=== PATIENT | female | born 1930 | race Caucasian/White ===

== ENCOUNTER 2017-03-01 13:30 | Inpatient (IN) | payer MEDICARE, OTHER ==
[2017-03-01] MEDS ORDERED: Haloperidol Lactate 5 mg/mL 1mL Vial IM STA (13:41)
[2017-03-01] MEDS ORDERED: Haloperidol Lactate 5 mg/mL 1mL Vial ONE (13:45)
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
[2017-03-01 15:51] LABS: % BASOPHILS 0.3 % (0.0-2.0); % EOSINOPHILS 1.1 % (0.0-5.0); % LYMPHOCYTES 24.8 % (20.0-50.0); % NEUTROPHILS 67.8 % (40.0-80.0); HEMATOCRIT 34.9 % (35.0-45.0); HEMOGLOBIN 11.6 gm/dL (11.7-16.1); MEAN CELL VOLUME 85.8 fl (81-100); MEAN CORPUSCULAR HEMOGLOBIN 28.6 pg (27.0-31.0); MEAN CORPUSCULAR HGB CONC 33.4 pg (28.0-36.0); MEAN PLATELET VOLUME 9.9 fl; NEUTROPHILE ABSOLUTE 7.5 Th/cmm (1.8-8.0); PLATELET COUNT 337 Th/cmm (150-400); RED BLOOD COUNT 4.07 Mil/cmm (3.80-5.20); RED CELL DISTRIBUTION WIDTH 13.8 % (11.5-20.0); WHITE BLOOD COUNT 11.1 Th/cmm (4.8-10.8)
[2017-03-01 15:58] LABS: ACETAMINOPHEN < 10.0 ug/mL (10.0-30.0); ALB/GLOB RATIO 1.2 (1.0-1.8); ALKALINE PHOSPHATASE 113 U/L (34-104); ANION GAP 11.1 (7.0-16.0); BILIRUBIN,TOTAL 0.2 mg/dL (0.3-1.0); BUN - UREA NITROGEN 23 mg/dL (7-25); BUN/CREATININE RATIO 25.6; CALCIUM SERUM 9.7 mg/dL (8.6-10.3); CARBON DIOXIDE 25.3 mEq/L (21.0-31.0); CHLORIDE 104 mEq/L (98-107); CHOLESTEROL 191 mg/dL (<200); CREATININE - SERUM 0.9 mg/dL (0.6-1.2); GLUCOSE 64 mg/dL (70-105); POTASSIUM SERUM 3.4 mEq/L (3.5-5.1); SGOT 17 U/L (13-39); SGPT/ALT 11 U/L (7-52); SODIUM SERUM 137 mEq/L (136-145); TRIGLYCERIDES 163 mg/dL (<150)
[2017-03-01 16:53] LABS: URINE BILIRUBIN NEGATIVE (NEGATIVE); URINE COLOR YELLOW; URINE KETONE NEGATIVE (NEGATIVE); URINE PH 7.5; URINE PROTEIN NEGATIVE (NEGATIVE)
[2017-03-01 16:56] LABS: URINE GLUCOSE (UA) 250 mg/dL (NEGATIVE)
[2017-03-01 16:57] LABS: URINE BLOOD NEGATIVE (NEGATIVE)
[2017-03-01 16:58] LABS: URINE BACTERIA NONE SEEN /hpf (NONE SEEN); URINE EPITHELIAL CELLS NONE SEEN /lpf (FEW); URINE RBC NONE SEEN /hpf (0-5); URINE WBC NONE SEEN /hpf (0-5)
[2017-03-01 18:05] VITALS: BP 123/62
[2017-03-01 18:11] LABS: AMPHETAMINE URINE NEGATIVE (NEGATIVE); BARBITURATES URINE NEGATIVE (NEGATIVE); METHADONE URINE NEGATIVE (NEGATIVE)
[2017-03-01] MEDS ORDERED: Maalox 30 mL Cup PO PRN (19:58)
[2017-03-01] MEDS ORDERED: Magnesium Hydroxide (MOM) 30 mL UDC PO PRN (19:58)
[2017-03-01] MEDS ORDERED: Hydrocodone/APAP 10 mg/325 mg Tab PO PRN (20:24)
[2017-03-01] MEDS: Escitalopram Oxalate 5 mg Tab PO SCH (21:29)
[2017-03-01] MEDS: INSULIN ASPART SLIDING SCALE 100 UNITS/ML UNIT SUBQ SCH (21:30)
--- NOTE | 2017-03-02 04:53 | Admit Criteria Form ---
Admit Criteria Forms - Admit Criteria Diagnosis: PSYCHIATRIC DISORDERS (Place 'X' for any and all applicable criteria): Ongoing inpatient care may be needed for 1 or more of the following(1)(2)(3)(4)( 6)(7)(8): [ ]I. Danger to self or others not manageable at lower level of care. [ ]II. Grave disability (eg, inability to perform self care necessary at lower level of care) [X]III. Agitation or inappropriate behavior interfering with care for primary condition (eg, attempting to discontinue lines or drains prematurely, unable to cooperate with respiratory care) [ ]IV. Severe disability or disorder indicated by ALL of the following: [ ]a) Severe behavioral health disorder-related symptoms or condition indicated by 1 or more of the following: [ ]i) Severe problem with cognition, memory, judgment, or impulse control [ ]ii) Severe clinical manifestations (eg, hallucinations, delusions, other acute psychotic symptoms, macy, extreme agitation or anxiety) [ ]b) Patient management at lower level of care is not feasible until acute intervention or modification is initiated. Extended stay beyond goal length of stay for the primary condition may be needed until ALLof the following are present(1)(2)(3)(4)(722)(23): [ ]a) Danger to self or others is absent or manageable at lower level of care [ ]b) Behavior crisis management, including physical or chemical restraints, is required and is not available at a lower level of care. [ ]c) Behavioral symptoms (e.g., agitation, somnolence, inappropriate behavior) are present, and are not manageable at a lower level of care. [ ]d) Patient cannot understand follow-up treatment and crisis plan. [ ]e) Provider and supports are sufficiently available at lower level of care. [ ]f) Patient can participate (e.g., verify absence of plan for harm) and is in needed of monitoring. The original [facility] content created by [facility] [employer] has been revised. The portions of the content which have been revised are identified through the use of italic text or in bold, and [facility] [employer] has neither reviewed nor approved the modified material. All other unmodified content is copyright [facility]. Please see references footnoted in the original [facility] edition 2017
[2017-03-02] MEDS: INSULIN ASPART SLIDING SCALE 100 UNITS/ML UNIT SUBQ SCH ×4 (06:56→21:13)
[2017-03-02] MEDS: Multivitamin Tab PO SCH (09:04)
[2017-03-02] MEDS: Insulin Detemir 100 units/mL 10mL Vial SUBQ SCH ×2 (09:05→16:40)
[2017-03-02] MEDS: Escitalopram Oxalate 5 mg Tab PO SCH (21:05)
[2017-03-03] MEDS: INSULIN ASPART SLIDING SCALE 100 UNITS/ML UNIT SUBQ SCH ×4 (06:42→20:54)
[2017-03-03] MEDS: Insulin Detemir 100 units/mL 10mL Vial SUBQ SCH ×2 (08:16→16:26)
[2017-03-03] MEDS: Multivitamin Tab PO SCH (08:17)
[2017-03-03 14:11] LABS: HEP B CORE IGM Negative (Negative); HEP C ANTIBODY <0.1 s/co ratio (0.0-0.9)
[2017-03-03] MEDS: Escitalopram Oxalate 5 mg Tab PO SCH (20:54)
[2017-03-04] MEDS: INSULIN ASPART SLIDING SCALE 100 UNITS/ML UNIT SUBQ SCH ×4 (06:32→21:03)
[2017-03-04] MEDS: Insulin Detemir 100 units/mL 10mL Vial SUBQ SCH ×2 (09:30→16:12)
[2017-03-04] MEDS: Multivitamin Tab PO SCH (09:30)
[2017-03-04] MEDS: Escitalopram Oxalate 5 mg Tab PO SCH (21:03)
[2017-03-05] MEDS: INSULIN ASPART SLIDING SCALE 100 UNITS/ML UNIT SUBQ SCH ×4 (06:32→21:23)
[2017-03-05] MEDS: Insulin Detemir 100 units/mL 10mL Vial SUBQ SCH ×2 (09:00→17:06)
[2017-03-05] MEDS: Multivitamin Tab PO SCH (09:46)
[2017-03-05] MEDS: Escitalopram Oxalate 5 mg Tab PO SCH (20:57)
[2017-03-06] MEDS: INSULIN ASPART SLIDING SCALE 100 UNITS/ML UNIT SUBQ SCH ×4 (06:31→21:15)
--- NOTE | 2017-03-06 09:24 | History and Physical ---
History of Present Illness - HPI Chief Complaint: Mental health evaluation HPI: 87 yrs old F admitted for evaluation of her mental health by Dr Spencer. Dr Spencer requested medical evaluation for this patient. Patient has underlying history of DM II HTN for which she is on chronic meds. Patient denied any complaints during my evaluation. 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 Pertinent Hx Psych: Report: Psychosis Endocrine: Report: Diabetes Family Medical History - Family Member Mother History Unknown: Yes Social History Smoke: No Alcohol: None Drugs: None Lives: [facility] - Medications Home Medications: Home Medication Medication Instructions Recorded Type Acetaminophen 325 mg PO Q4HR PRN 03/01/17 History Acetaminophen [Tylenol] 650 mg PO Q4HR PRN 03/01/17 History Docusate Sodium [Stool Softener] 250 mg PO DAILY 03/01/17 History Donepezil Hcl [Aricept] 10 mg PO HS 03/01/17 History Escitalopram Oxalate [Lexapro] 5 mg PO HS 03/01/17 History Hydralazine HCl 10 mg PO Q6HRT 03/01/17 History Hydrocodone/APAP 10 mg/325 mg 1 tab PO Q4HR PRN 03/01/17 History [[place] 10 mg/325 mg] Insulin Detemir [Levemir] 25 unit SQ BID 03/01/17 History Insulin Human Regular [NovoLIN R] 0 units SUBQ ACHS 03/01/17 History Ipratropium/Albuterol Sulfate 1 puff INH Q4HR 03/01/17 History [Combivent Respimat Inhal [place]] Magnesium Hydroxide [Milk of 30 ml PO PRN 03/01/17 History Magnesia] Memantine HCl [Namenda] 10 mg PO DAILY 03/01/17 History Metformin HCl [Metformin HCl ER] 1,000 mg PO BID 03/01/17 History Multivitamin [Multi-Day Vitamins] 1 each PO DAILY 03/01/17 History QUEtiapine Fumarate [SEROquel] 50 mg PO TID 03/01/17 History Saccharomyces Boulardii [Florastor] 250 mg PO BID 03/01/17 History amLODIPine Besylate [Norvasc] 5 mg PO DAILY 03/01/17 History - Allergies Allergies/Adverse Reactions: Allergies Allergy/AdvReac Type Severity Reaction Status Date / Time No Known Allergies Allergy Verified 03/01/17 15:12 Review of Systems - Review of Systems Constitutional: Denies: Fever Eyes: Denies: Pain Respiratory: Denies: Cough, SOB with Excertion Cardiovascular: Denies: Chest Pain, Palpitations Gastrointestinal: Denies: Nausea, Vomiting, Diarrhea, Constipation Genitourinary: Denies: Dysuria, Frequency Musculoskeletal: Denies: Neck Pain, Shoulder Pain, Back Pain Skin: Denies: Rash Neurological: Denies: Weakness, Numbness Physical Exam - Physical Exam Neck: Report: WNL Cardiovascular Systems: Report: Regular, Rate and Rhythm Respiratory: Report: Clear to Auscultation of lung trotter Abdomen: Report: Non-tender to palpation Back: Report: Inspection of back is within normal limits. Extremities: Report: No pedal edema was noted on inspection Skin: Report: Color of skin is within normal limits Neuro/Psych: Report: No new focal deficits - Lab Results All Lab Results last 24 hours: Laboratory Last Values WBC 11.1 Th/cmm (4.8-10.8) H 03/01/17 15:35 RBC 4.07 Mil/cmm (3.80-5.20) 03/01/17 15:35 Hgb 11.6 gm/dL (11.7-16.1) L 03/01/17 15:35 Hct 34.9 % (35.0-45.0) L 03/01/17 15:35 MCV 85.8 fl (81-100) 03/01/17 15:35 MCH 28.6 pg (27.0-31.0) 03/01/17 15:35 MCHC Differential 33.4 pg (28.0-36.0) 03/01/17 15:35 RDW 13.8 % (11.5-20.0) 03/01/17 15:35 Plt Count 337 Th/cmm (150-400) 03/01/17 15:35 MPV 9.9 fl 03/01/17 15:35 Neutrophils % 67.8 % (40.0-80.0) 03/01/17 15:35 Lymphocytes % 24.8 % (20.0-50.0) 03/01/17 15:35 Monocytes % 6.0 % (2.0-10.0) 03/01/17 15:35 Eosinophils % 1.1 % (0.0-5.0) 03/01/17 15:35 Basophils % 0.3 % (0.0-2.0) 03/01/17 15:35 Sodium 137 mEq/L (136-145) 03/01/17 15:35 Potassium 3.4 mEq/L (3.5-5.1) L 03/01/17 15:35 Chloride 104 mEq/L (98-107) 03/01/17 15:35 Carbon Dioxide 25.3 mEq/L (21.0-31.0) 03/01/17 15:35 Anion Gap 11.1 (7.0-16.0) 03/01/17 15:35 BUN 23 mg/dL (7-25) 03/01/17 15:35 Creatinine 0.9 mg/dL (0.6-1.2) 03/01/17 15:35 Est GFR ( Amer) TNP 03/01/17 15:35 Est GFR (Non-Af Amer) TNP 03/01/17 15:35 BUN/Creatinine Ratio 25.6 03/01/17 15:35 Glucose 64 mg/dL (70-105) L 03/01/17 15:35 POC Glucose 362 MG/DL (70 - 105) H 03/04/17 16:49 Calcium 9.7 mg/dL (8.6-10.3) 03/01/17 15:35 Total Bilirubin 0.2 mg/dL (0.3-1.0) L 03/01/17 15:35 AST 17 U/L (13-39) 03/01/17 15:35 ALT 11 U/L (7-52) 03/01/17 15:35 Alkaline Phosphatase 113 U/L (34-104) H 03/01/17 15:35 Total Protein 7.2 gm/dL (6.0-8.3) 03/01/17 15:35 Albumin 3.9 gm/dL (3.7-5.3) 03/01/17 15:35 Globulin 3.3 gm/dL 03/01/17 15:35 Albumin/Globulin Ratio 1.2 (1.0-1.8) 03/01/17 15:35 Triglycerides 163 mg/dL (<150) H 03/01/17 15:35 Cholesterol 191 mg/dL (<200) 03/01/17 15:35 LDL Cholesterol Direct 114 mg/dL (75-193) 03/01/17 15:35 HDL Cholesterol 50 mg/dL (23-92) 03/01/17 15:35 TSH 1.12 uIU/ml (0.34-5.60) 03/01/17 15:35 Urine Source CLEAN C 03/01/17 16:05 Urine Color YELLOW 03/01/17 16:05 Urine Clarity CLEAR (CLEAR) 03/01/17 16:05 Urine pH 7.5 03/01/17 16:05 Ur Specific [place] 1.010 (1.005-1.030) 03/01/17 16:05 Urine Protein NEGATIVE mg/dL (NEGATIVE) 03/01/17 16:05 Urine Glucose (UA) 250 mg/dL (NEGATIVE) H 03/01/17 16:05 Urine Ketones NEGATIVE mg/dL (NEGATIVE) 03/01/17 16:05 Urine Blood NEGATIVE (NEGATIVE) 03/01/17 16:05 Urine Nitrate NEGATIVE (NEGATIVE) 03/01/17 16:05 Urine Bilirubin NEGATIVE (NEGATIVE) 03/01/17 16:05 Urine Urobilinogen 1.0 E.U./dL (0.2 - 1.0) 03/01/17 16:05 Ur Leukocyte Esterase NEGATIVE (NEGATIVE) 03/01/17 16:05 Urine RBC NONE SEEN /hpf (0-5) 03/01/17 16:05 Urine WBC NONE SEEN /hpf (0-5) 03/01/17 16:05 Ur Epithelial Cells NONE SEEN /lpf (FEW) 03/01/17 16:05 Urine Bacteria NONE SEEN /hpf (NONE SEEN) 03/01/17 16:05 Salicylates < 25.0 mg/L (30.0-100.0) L 03/01/17 15:35 Urine Opiates Screen NEGATIVE (NEGATIVE) 03/01/17 16:05 Urine Methadone Screen NEGATIVE (NEGATIVE) 03/01/17 16:05 Acetaminophen < 10.0 ug/mL (10.0-30.0) L 03/01/17 15:35 Ur Barbiturates Screen NEGATIVE (NEGATIVE) 03/01/17 16:05 Ur Tricyclics Screen POSITIVE (NEGATIVE) H 03/01/17 16:05 Ur Phencyclidine Scrn NEGATIVE (NEGATIVE) 03/01/17 16:05 Amphetamines Screen NEGATIVE (NEGATIVE) 03/01/17 16:05 U Methamphetamines Scrn NEGATIVE (NEGATIVE) 03/01/17 16:05 U Benzodiazepines Scrn NEGATIVE (NEGATIVE) 03/01/17 16:05 U Cocaine Metab Screen NEGATIVE (NEGATIVE) 03/01/17 16:05 U Cannabinoids Screen NEGATIVE (NEGATIVE) 03/01/17 16:05 Ethyl Alcohol < 10 mg/dL (0-10) 03/01/17 15:35 RPR NONREACTIVE (NONREACTIVE) 03/01/17 15:35 Hepatitis A IgM Ab Negative (Negative) 03/01/17 15:35 Hep Bs Antigen Negative (Negative) 03/01/17 15:35 Hep B Core IgM Ab Negative (Negative) 03/01/17 15:35 Hepatitis C Antibody <0.1 s/co ratio (0.0-0.9) 03/01/17 15:35 - Assessment Assessment: DM II HTN DEMENTIA ALZHEIMER TYPE MENTAL HEALTH DISORDER - Plan Plan: Continue Basal bolus insulin coverage Home medication reviewed Accucheck Monitor vitals [place] precaution Psych management per Psychiatrist Plan of care discussed with nursing staff Thank you Dr Spencer for allowing me to participate in care of your patient.
[2017-03-06] MEDS ORDERED: Haloperidol Lactate 5 mg/mL 1mL Vial ONE (11:36)
[2017-03-06] MEDS ORDERED: Haloperidol Lactate 5 mg/mL 1mL Vial IM ONE (11:44)
[2017-03-06] MEDS ORDERED: Haloperidol Lactate 5 mg/mL 1mL Vial IM STA (11:44)
[2017-03-06] MEDS: Insulin Detemir 100 units/mL 10mL Vial SUBQ SCH ×2 (12:19→17:48)
[2017-03-06] MEDS: Multivitamin Tab PO SCH (12:32)
[2017-03-06] MEDS: Escitalopram Oxalate 5 mg Tab PO SCH (21:06)
[2017-03-07] MEDS: INSULIN ASPART SLIDING SCALE 100 UNITS/ML UNIT SUBQ SCH ×4 (06:34→20:57)
[2017-03-07] MEDS: Triple Antibiotic 0.94 gm Pkt TP SCH (08:52)
[2017-03-07] MEDS: Multivitamin Tab PO SCH (08:53)
[2017-03-07] MEDS: Insulin Detemir 100 units/mL 10mL Vial SUBQ SCH ×3 (09:11→17:10)
[2017-03-07] MEDS: QUEtiapine Fumarate 50 MG, QUEtiapine Fumarate 12.5 MG PO SCH ×2 (14:00→20:53)
[2017-03-07] MEDS: Escitalopram Oxalate 5 mg Tab PO SCH (20:56)
[2017-03-08] MEDS: INSULIN ASPART SLIDING SCALE 100 UNITS/ML UNIT SUBQ SCH ×4 (08:10→20:33)
[2017-03-08] MEDS ORDERED: Haloperidol Lactate 5 mg/mL 1mL Vial IM ONE (11:25)
[2017-03-08] MEDS ORDERED: Haloperidol Lactate 5 mg/mL 1mL Vial ONE (11:28)
[2017-03-08] MEDS: Triple Antibiotic 0.94 gm Pkt TP SCH (11:39)
[2017-03-08] MEDS: Insulin Detemir 100 units/mL 10mL Vial SUBQ SCH ×2 (11:40→17:18)
[2017-03-08] MEDS: Multivitamin Tab PO SCH (11:40)
[2017-03-08] MEDS: QUEtiapine Fumarate 50 MG, QUEtiapine Fumarate 12.5 MG PO SCH ×3 (11:40→20:33)
--- NOTE | 2017-03-08 20:04 | General Progress Note ---
Subjective - Review of Systems Service Date: 03/08/17 Subjective: Patient seen and examined very confused per nursing staff patient has been refusing all her meds accucheck and Neosporin ointment Objective - Results Result Diagrams: 03/01/17 15:35 03/01/17 15:35 Recent Labs: Laboratory Last Values WBC 11.1 Th/cmm (4.8-10.8) H 03/01/17 15:35 RBC 4.07 Mil/cmm (3.80-5.20) 03/01/17 15:35 Hgb 11.6 gm/dL (11.7-16.1) L 03/01/17 15:35 Hct 34.9 % (35.0-45.0) L 03/01/17 15:35 MCV 85.8 fl (81-100) 03/01/17 15:35 MCH 28.6 pg (27.0-31.0) 03/01/17 15:35 MCHC Differential 33.4 pg (28.0-36.0) 03/01/17 15:35 RDW 13.8 % (11.5-20.0) 03/01/17 15:35 Plt Count 337 Th/cmm (150-400) 03/01/17 15:35 MPV 9.9 fl 03/01/17 15:35 Neutrophils % 67.8 % (40.0-80.0) 03/01/17 15:35 Lymphocytes % 24.8 % (20.0-50.0) 03/01/17 15:35 Monocytes % 6.0 % (2.0-10.0) 03/01/17 15:35 Eosinophils % 1.1 % (0.0-5.0) 03/01/17 15:35 Basophils % 0.3 % (0.0-2.0) 03/01/17 15:35 Sodium 137 mEq/L (136-145) 03/01/17 15:35 Potassium 3.4 mEq/L (3.5-5.1) L 03/01/17 15:35 Chloride 104 mEq/L (98-107) 03/01/17 15:35 Carbon Dioxide 25.3 mEq/L (21.0-31.0) 03/01/17 15:35 Anion Gap 11.1 (7.0-16.0) 03/01/17 15:35 BUN 23 mg/dL (7-25) 03/01/17 15:35 Creatinine 0.9 mg/dL (0.6-1.2) 03/01/17 15:35 Est GFR ( Amer) TNP 03/01/17 15:35 Est GFR (Non-Af Amer) TNP 03/01/17 15:35 BUN/Creatinine Ratio 25.6 03/01/17 15:35 Glucose 64 mg/dL (70-105) L 03/01/17 15:35 POC Glucose 285 MG/DL (70 - 105) H 03/07/17 16:42 Calcium 9.7 mg/dL (8.6-10.3) 03/01/17 15:35 Total Bilirubin 0.2 mg/dL (0.3-1.0) L 03/01/17 15:35 AST 17 U/L (13-39) 03/01/17 15:35 ALT 11 U/L (7-52) 03/01/17 15:35 Alkaline Phosphatase 113 U/L (34-104) H 03/01/17 15:35 Total Protein 7.2 gm/dL (6.0-8.3) 03/01/17 15:35 Albumin 3.9 gm/dL (3.7-5.3) 03/01/17 15:35 Globulin 3.3 gm/dL 03/01/17 15:35 Albumin/Globulin Ratio 1.2 (1.0-1.8) 03/01/17 15:35 Triglycerides 163 mg/dL (<150) H 03/01/17 15:35 Cholesterol 191 mg/dL (<200) 03/01/17 15:35 LDL Cholesterol Direct 114 mg/dL (75-193) 03/01/17 15:35 HDL Cholesterol 50 mg/dL (23-92) 03/01/17 15:35 TSH 1.12 uIU/ml (0.34-5.60) 03/01/17 15:35 Urine Source CLEAN C 03/01/17 16:05 Urine Color YELLOW 03/01/17 16:05 Urine Clarity CLEAR (CLEAR) 03/01/17 16:05 Urine pH 7.5 03/01/17 16:05 Ur Specific [place] 1.010 (1.005-1.030) 03/01/17 16:05 Urine Protein NEGATIVE mg/dL (NEGATIVE) 03/01/17 16:05 Urine Glucose (UA) 250 mg/dL (NEGATIVE) H 03/01/17 16:05 Urine Ketones NEGATIVE mg/dL (NEGATIVE) 03/01/17 16:05 Urine Blood NEGATIVE (NEGATIVE) 03/01/17 16:05 Urine Nitrate NEGATIVE (NEGATIVE) 03/01/17 16:05 Urine Bilirubin NEGATIVE (NEGATIVE) 03/01/17 16:05 Urine Urobilinogen 1.0 E.U./dL (0.2 - 1.0) 03/01/17 16:05 Ur Leukocyte Esterase NEGATIVE (NEGATIVE) 03/01/17 16:05 Urine RBC NONE SEEN /hpf (0-5) 03/01/17 16:05 Urine WBC NONE SEEN /hpf (0-5) 03/01/17 16:05 Ur Epithelial Cells NONE SEEN /lpf (FEW) 03/01/17 16:05 Urine Bacteria NONE SEEN /hpf (NONE SEEN) 03/01/17 16:05 Salicylates < 25.0 mg/L (30.0-100.0) L 03/01/17 15:35 Urine Opiates Screen NEGATIVE (NEGATIVE) 03/01/17 16:05 Urine Methadone Screen NEGATIVE (NEGATIVE) 03/01/17 16:05 Acetaminophen < 10.0 ug/mL (10.0-30.0) L 03/01/17 15:35 Ur Barbiturates Screen NEGATIVE (NEGATIVE) 03/01/17 16:05 Ur Tricyclics Screen POSITIVE (NEGATIVE) H 03/01/17 16:05 Ur Phencyclidine Scrn NEGATIVE (NEGATIVE) 03/01/17 16:05 Amphetamines Screen NEGATIVE (NEGATIVE) 03/01/17 16:05 U Methamphetamines Scrn NEGATIVE (NEGATIVE) 03/01/17 16:05 U Benzodiazepines Scrn NEGATIVE (NEGATIVE) 03/01/17 16:05 U Cocaine Metab Screen NEGATIVE (NEGATIVE) 03/01/17 16:05 U Cannabinoids Screen NEGATIVE (NEGATIVE) 03/01/17 16:05 Ethyl Alcohol < 10 mg/dL (0-10) 03/01/17 15:35 RPR NONREACTIVE (NONREACTIVE) 03/01/17 15:35 Hepatitis A IgM Ab Negative (Negative) 03/01/17 15:35 Hep Bs Antigen Negative (Negative) 03/01/17 15:35 Hep B Core IgM Ab Negative (Negative) 03/01/17 15:35 Hepatitis C Antibody <0.1 s/co ratio (0.0-0.9) 03/01/17 15:35 - Physical Exam Vitals and I&O: Vital Signs Temp 97.8 F 03/07/17 20:00 Pulse 93 03/08/17 00:00 Resp 18 03/07/17 20:00 BP 142/77 03/08/17 00:00 Pulse Ox 98 03/07/17 20:00 Intake & Output 03/08/17 03/08/17 03/09/17 06:59 18:59 06:59 Intake Total 120 Balance 120 Weight (lbs) 50.303 kg Intake: Oral 120 Other: # Voids 3 Active Medications: Current Medications Acetaminophen (Tylenol) 650 mg PO Q4HR PRN PRN Reason: Mild Pain / Temp above 100 Stop: 04/30/17 19:57 Acetaminophen/Hydrocodone Bitart ([place] 10 Mg/325 Mg) 1 tab PO Q4HR PRN PRN Reason: Pain (Moderate) Stop: 04/30/17 20:23 Al Hydrox/Mg Hydrox/Simethicone (Maalox) 30 ml PO Q4HR PRN PRN Reason: GI DISTRESS Stop: 04/30/17 19:57 Amlodipine Besylate (Norvasc) 5 mg PO DAILY JAMES Stop: 05/01/17 08:59 Last Admin: 03/08/17 11:38 Dose: Not Given Docusate Sodium (Colace) 250 mg PO DAILY JAMES Stop: 05/01/17 08:59 Last Admin: 03/08/17 11:40 Dose: Not Given Donepezil HCl (Aricept) 10 mg PO HS JAMES Stop: 04/30/17 20:59 Last Admin: 03/07/17 20:56 Dose: 10 mg Escitalopram Oxalate (Lexapro) 10 mg PO HS JAMES PRN Reason: Protocol Stop: 05/02/17 12:10 Last Admin: 03/07/17 20:56 Dose: 10 mg Hydralazine HCl (Apresoline) 10 mg PO Q6HR JAMES Stop: 05/01/17 05:59 Last Admin: 03/08/17 18:19 Dose: Not Given Insulin Aspart (Novolog Insulin Sliding Scale) 0 units SUBQ ACHS JAMES PRN Reason: Protocol Stop: 04/30/17 20:59 Last Admin: 03/08/17 17:17 Dose: Not Given Insulin Detemir (Levemir Insulin) 25 units SUBQ BID JAMES Stop: 05/01/17 08:59 Last Admin: 03/08/17 17:18 Dose: Not Given Lorazepam (Ativan) 0.5 mg PO Q4HR PRN; Protocol PRN Reason: Anxiety Stop: 03/31/17 19:57 Last Admin: 03/03/17 08:29 Dose: 0.5 mg Magnesium Hydroxide (Milk Of Magnesia) 30 ml PO HS PRN PRN Reason: Constipation Stop: 04/30/17 19:57 Memantine (Namenda) 10 mg PO DAILY JAMES Stop: 05/01/17 08:59 Last Admin: 03/08/17 11:40 Dose: Not Given Multivitamins/Vitamin C (Theragran) 1 tab PO DAILY JAMES Stop: 05/01/17 08:59 Last Admin: 03/08/17 11:40 Dose: Not Given Neomycin/Polymyxin/Bacitracin (Triple Antibiotic Pkt) 1 pkt TP DAILY JAMES Stop: 05/06/17 08:59 Last Admin: 03/08/17 11:39 Dose: Not Given Quetiapine Fumarate 50 mg/ (Quetiapine Fumarate 12.5 mg) 62.5 mg PO TID JAMES Stop: 05/06/17 13:59 Last Admin: 03/08/17 14:41 Dose: Not Given Zolpidem Tartrate (Ambien) 5 mg PO HS PRN PRN Reason: Insomnia Stop: 04/30/17 19:57 Last Admin: 03/01/17 22:29 Dose: 5 mg Other physical findings: Unable to examine since patient seems somewhat combative Assessment/Plan - Assessment Assessment: SUPERFICIAL WOUND RIGHT INNER LOWER EYELID AREA DM II HTN DEMENTIA ALZHEIMER TYPE MENTAL HEALTH DISORDER - Plan Plan: Continue current treatment Accucheck Monitor vitals [place] precaution Psych management per Psychiatrist Plan of care discussed with nursing staff Nutritional Asmnt/Malnutr-PDOC - Dietary Evaluation Malnutrition Findings (Please click <Entered> for more info): Nutritional Asmnt/Malnutrition Start: 03/05/17 16: 48 Text: Status: Complete Freq: Document 03/05/17 16:48 GSUN (Rec: 03/05/17 17:08 GSUN [email or web address]) Nutritional Asmnt/Malnutrition Patient General Information Nutritional Screening Moderate Risk Screening Diagnosis ER: anemia, leukocytosis, hypokalemia, dementia with agitaion Pertinent Medical Hx/Surgical Hx ER: DM, dementia, Alzheimer's disease Subjective Information 87 year old female from SNF, Yoruba speaking. Per BRANCH ACCOUNT EXECUTIVE, pt is confused, unable to interview. RAÚL Lundy and BRANCH ACCOUNT EXECUTIVE holding pt down to do accuchecks and administer insulin during visit. Pt was combative, biting and grabbing staff. Pt appeared thin, unable to perform physical assessment, however pt noted with great strength for age. BRANCH ACCOUNT EXECUTIVE stated pt with good appetite, especially when family visits. 03/02 100% of meals, meeting nutritional needs. Pt has a g-tube scar. Current Diet Order/ Nutrition Support Pureed Pertinent Medications Maalox, Colace, Novolog, Levemir, MOM, Theragran, Seroquel Pertinent Labs POC glucose 46-362 range since adm. 1 episode of hypoglycemia 50 46 on 03/03 morning, otherwise > 150. Nutritional Hx/Data Height 1.57 m Height (Calculated Centimeters) 157.5 Current Weight (lbs) 47.083 kg Weight (Calculated Kilograms) 47.1 Weight (Calculated Grams) 48045.9 [place]rill Body Weight 110 Weight Status Approriate GI Symptoms Skin Integrity/Comment: Toni 15. G-tube scar, upper cheek abrasion. Current %PO Good (75-100%) Estimated Nutritional Goals Calories/Kcals/Kg IBW 110lb/50kg (underweight for age, promote weight gain) Kcals Calculated 1250-1500kcal (25-30kcal/kg) Protein Calculated 50g (1g/kg) Fluid: ml 1250-1500ml (1ml/kcal) Nutritional Problem 1. Problem Problem No nutritional problem at this time. Intervention/Recommendation Comments 1. Recommend [id number]. Provide assistance with meals. Pt noted with good appetite. Expected Outcomes/Goals Expected Outcomes/Goals 1. PO intake to meet at least 75% of estimated nutritional needs.
[2017-03-08] MEDS: Escitalopram Oxalate 5 mg Tab PO SCH (20:33)
[2017-03-09] MEDS: INSULIN ASPART SLIDING SCALE 100 UNITS/ML UNIT SUBQ SCH ×3 (06:37→16:38)
[2017-03-09] MEDS: QUEtiapine Fumarate 50 MG, QUEtiapine Fumarate 12.5 MG PO SCH ×3 (08:47→22:43)
[2017-03-09] MEDS: Multivitamin Tab PO SCH (08:48)
[2017-03-09] MEDS: Triple Antibiotic 0.94 gm Pkt TP SCH (08:48)
[2017-03-09] MEDS: Insulin Detemir 100 units/mL 10mL Vial SUBQ SCH ×2 (08:49→16:37)
[2017-03-09] MEDS ORDERED: Haloperidol Lactate 5 mg/mL 1mL Vial IM ONE (11:53)
[2017-03-09] MEDS ORDERED: Haloperidol Lactate 5 mg/mL 1mL Vial ONE (11:53)
[2017-03-09] MEDS: Escitalopram Oxalate 5 mg Tab PO SCH (22:42)
[2017-03-10] MEDS: INSULIN ASPART SLIDING SCALE 100 UNITS/ML UNIT SUBQ SCH ×4 (09:25→16:10)
[2017-03-10] MEDS: QUEtiapine Fumarate 50 MG, QUEtiapine Fumarate 12.5 MG PO SCH (09:26)
[2017-03-10] MEDS: Multivitamin Tab PO SCH (09:26)
[2017-03-10] MEDS: Triple Antibiotic 0.94 gm Pkt TP SCH (09:26)
[2017-03-10] MEDS: Insulin Detemir 100 units/mL 10mL Vial SUBQ SCH ×2 (09:47→16:10)
[2017-03-10] MEDS: Escitalopram Oxalate 5 mg Tab PO SCH (21:36)
[2017-03-11] MEDS: Multivitamin Tab PO SCH (10:05)
[2017-03-11] MEDS: Insulin Detemir 100 units/mL 10mL Vial SUBQ SCH (10:05)
[2017-03-11] MEDS: Triple Antibiotic 0.94 gm Pkt TP SCH (10:05)
[2017-03-11] MEDS: INSULIN ASPART SLIDING SCALE 100 UNITS/ML UNIT SUBQ SCH ×2 (16:05→20:58)
--- NOTE | 2017-03-11 20:08 | General Progress Note ---
Subjective - Review of Systems Service Date: 03/11/17 Subjective: Patient seen and examined very confused per nursing staff patient still refusing all her meds Objective - Results Result Diagrams: 03/01/17 15:35 03/01/17 15:35 Recent Labs: Laboratory Last Values WBC 11.1 Th/cmm (4.8-10.8) H 03/01/17 15:35 RBC 4.07 Mil/cmm (3.80-5.20) 03/01/17 15:35 Hgb 11.6 gm/dL (11.7-16.1) L 03/01/17 15:35 Hct 34.9 % (35.0-45.0) L 03/01/17 15:35 MCV 85.8 fl (81-100) 03/01/17 15:35 MCH 28.6 pg (27.0-31.0) 03/01/17 15:35 MCHC Differential 33.4 pg (28.0-36.0) 03/01/17 15:35 RDW 13.8 % (11.5-20.0) 03/01/17 15:35 Plt Count 337 Th/cmm (150-400) 03/01/17 15:35 MPV 9.9 fl 03/01/17 15:35 Neutrophils % 67.8 % (40.0-80.0) 03/01/17 15:35 Lymphocytes % 24.8 % (20.0-50.0) 03/01/17 15:35 Monocytes % 6.0 % (2.0-10.0) 03/01/17 15:35 Eosinophils % 1.1 % (0.0-5.0) 03/01/17 15:35 Basophils % 0.3 % (0.0-2.0) 03/01/17 15:35 Sodium 137 mEq/L (136-145) 03/01/17 15:35 Potassium 3.4 mEq/L (3.5-5.1) L 03/01/17 15:35 Chloride 104 mEq/L (98-107) 03/01/17 15:35 Carbon Dioxide 25.3 mEq/L (21.0-31.0) 03/01/17 15:35 Anion Gap 11.1 (7.0-16.0) 03/01/17 15:35 BUN 23 mg/dL (7-25) 03/01/17 15:35 Creatinine 0.9 mg/dL (0.6-1.2) 03/01/17 15:35 Est GFR ( Amer) TNP 03/01/17 15:35 Est GFR (Non-Af Amer) TNP 03/01/17 15:35 BUN/Creatinine Ratio 25.6 03/01/17 15:35 Glucose 64 mg/dL (70-105) L 03/01/17 15:35 POC Glucose 309 MG/DL (70 - 105) H 03/09/17 16:25 Calcium 9.7 mg/dL (8.6-10.3) 03/01/17 15:35 Total Bilirubin 0.2 mg/dL (0.3-1.0) L 03/01/17 15:35 AST 17 U/L (13-39) 03/01/17 15:35 ALT 11 U/L (7-52) 03/01/17 15:35 Alkaline Phosphatase 113 U/L (34-104) H 03/01/17 15:35 Total Protein 7.2 gm/dL (6.0-8.3) 03/01/17 15:35 Albumin 3.9 gm/dL (3.7-5.3) 03/01/17 15:35 Globulin 3.3 gm/dL 03/01/17 15:35 Albumin/Globulin Ratio 1.2 (1.0-1.8) 03/01/17 15:35 Triglycerides 163 mg/dL (<150) H 03/01/17 15:35 Cholesterol 191 mg/dL (<200) 03/01/17 15:35 LDL Cholesterol Direct 114 mg/dL (75-193) 03/01/17 15:35 HDL Cholesterol 50 mg/dL (23-92) 03/01/17 15:35 TSH 1.12 uIU/ml (0.34-5.60) 03/01/17 15:35 Urine Source CLEAN C 03/01/17 16:05 Urine Color YELLOW 03/01/17 16:05 Urine Clarity CLEAR (CLEAR) 03/01/17 16:05 Urine pH 7.5 03/01/17 16:05 Ur Specific [place] 1.010 (1.005-1.030) 03/01/17 16:05 Urine Protein NEGATIVE mg/dL (NEGATIVE) 03/01/17 16:05 Urine Glucose (UA) 250 mg/dL (NEGATIVE) H 03/01/17 16:05 Urine Ketones NEGATIVE mg/dL (NEGATIVE) 03/01/17 16:05 Urine Blood NEGATIVE (NEGATIVE) 03/01/17 16:05 Urine Nitrate NEGATIVE (NEGATIVE) 03/01/17 16:05 Urine Bilirubin NEGATIVE (NEGATIVE) 03/01/17 16:05 Urine Urobilinogen 1.0 E.U./dL (0.2 - 1.0) 03/01/17 16:05 Ur Leukocyte Esterase NEGATIVE (NEGATIVE) 03/01/17 16:05 Urine RBC NONE SEEN /hpf (0-5) 03/01/17 16:05 Urine WBC NONE SEEN /hpf (0-5) 03/01/17 16:05 Ur Epithelial Cells NONE SEEN /lpf (FEW) 03/01/17 16:05 Urine Bacteria NONE SEEN /hpf (NONE SEEN) 03/01/17 16:05 Salicylates < 25.0 mg/L (30.0-100.0) L 03/01/17 15:35 Urine Opiates Screen NEGATIVE (NEGATIVE) 03/01/17 16:05 Urine Methadone Screen NEGATIVE (NEGATIVE) 03/01/17 16:05 Acetaminophen < 10.0 ug/mL (10.0-30.0) L 03/01/17 15:35 Ur Barbiturates Screen NEGATIVE (NEGATIVE) 03/01/17 16:05 Ur Tricyclics Screen POSITIVE (NEGATIVE) H 03/01/17 16:05 Ur Phencyclidine Scrn NEGATIVE (NEGATIVE) 03/01/17 16:05 Amphetamines Screen NEGATIVE (NEGATIVE) 03/01/17 16:05 U Methamphetamines Scrn NEGATIVE (NEGATIVE) 03/01/17 16:05 U Benzodiazepines Scrn NEGATIVE (NEGATIVE) 03/01/17 16:05 U Cocaine Metab Screen NEGATIVE (NEGATIVE) 03/01/17 16:05 U Cannabinoids Screen NEGATIVE (NEGATIVE) 03/01/17 16:05 Ethyl Alcohol < 10 mg/dL (0-10) 03/01/17 15:35 RPR NONREACTIVE (NONREACTIVE) 03/01/17 15:35 Hepatitis A IgM Ab Negative (Negative) 03/01/17 15:35 Hep Bs Antigen Negative (Negative) 03/01/17 15:35 Hep B Core IgM Ab Negative (Negative) 03/01/17 15:35 Hepatitis C Antibody <0.1 s/co ratio (0.0-0.9) 03/01/17 15:35 - Physical Exam Vitals and I&O: Vital Signs Temp 98.2 F 03/09/17 14:00 Pulse 76 03/09/17 17:59 Resp 18 03/09/17 14:00 BP 120/59 03/09/17 17:59 Pulse Ox 97 03/09/17 14:00 Active Medications: Current Medications Acetaminophen (Tylenol) 650 mg PO Q4HR PRN PRN Reason: Mild Pain / Temp above 100 Stop: 04/30/17 19:57 Last Admin: 03/11/17 12:48 Dose: 650 mg Acetaminophen/Hydrocodone Bitart ([place] 10 Mg/325 Mg) 1 tab PO Q4HR PRN PRN Reason: Pain (Moderate) Stop: 04/30/17 20:23 Al Hydrox/Mg Hydrox/Simethicone (Maalox) 30 ml PO Q4HR PRN PRN Reason: GI DISTRESS Stop: 04/30/17 19:57 Amlodipine Besylate (Norvasc) 5 mg PO DAILY JAMES Stop: 05/01/17 08:59 Last Admin: 03/11/17 10:05 Dose: Not Given Docusate Sodium (Colace) 250 mg PO DAILY JAMES Stop: 05/01/17 08:59 Last Admin: 03/11/17 10:05 Dose: Not Given Donepezil HCl (Aricept) 10 mg PO HS JAMES Stop: 04/30/17 20:59 Last Admin: 03/10/17 21:35 Dose: Not Given Escitalopram Oxalate (Lexapro) 10 mg PO HS JAMES PRN Reason: Protocol Stop: 05/02/17 12:10 Last Admin: 03/10/17 21:36 Dose: Not Given Hydralazine HCl (Apresoline) 10 mg PO Q6HR JAMES Stop: 05/01/17 05:59 Last Admin: 03/11/17 12:46 Dose: Not Given Insulin Aspart (Novolog Insulin Sliding Scale) 0 units SUBQ ACHS JAMES PRN Reason: Protocol Stop: 04/30/17 20:59 Last Admin: 03/11/17 16:05 Dose: Not Given Insulin Detemir (Levemir Insulin) 25 units SUBQ BID [facility] Stop: 05/01/17 08:59 Last Admin: 03/11/17 10:05 Dose: Not Given Lorazepam (Ativan) 0.5 mg PO Q4HR PRN; Protocol PRN Reason: Anxiety Stop: 03/31/17 19:57 Last Admin: 03/11/17 12:48 Dose: 0.5 mg Magnesium Hydroxide (Milk Of Magnesia) 30 ml PO HS PRN PRN Reason: Constipation Stop: 04/30/17 19:57 Memantine (Namenda) 10 mg PO DAILY JAMES Stop: 05/01/17 08:59 Last Admin: 03/11/17 10:05 Dose: Not Given Multivitamins/Vitamin C (Theragran) 1 tab PO DAILY [facility] Stop: 05/01/17 08:59 Last Admin: 03/11/17 10:05 Dose: Not Given Neomycin/Polymyxin/Bacitracin (Triple Antibiotic Pkt) 1 pkt TP DAILY JAMES Stop: 05/06/17 08:59 Last Admin: 03/11/17 10:05 Dose: Not Given Quetiapine Fumarate (Seroquel) 75 mg PO TID JAMES Stop: 05/06/17 13:59 Last Admin: 03/11/17 16:05 Dose: Not Given Zolpidem Tartrate (Ambien) 5 mg PO HS PRN PRN Reason: Insomnia Stop: 04/30/17 19:57 Last Admin: 03/01/17 22:29 Dose: 5 mg Cardiovascular: Regular rate Lungs: Clear to auscultation Assessment/Plan - Assessment Assessment: SUPERFICIAL WOUND RIGHT INNER LOWER EYELID AREA healing DM II HTN NON COMPLIANCE DEMENTIA ALZHEIMER TYPE MENTAL HEALTH DISORDER - Plan Plan: Continue current treatment Accucheck Monitor vitals Fall precaution Psych management per Psychiatrist Plan of care discussed with nursing staff Nutritional Asmnt/Malnutr-PDOC - Dietary Evaluation Malnutrition Findings (Please click <Entered> for more info): Nutritional Asmnt/Malnutrition Start: 03/05/17 16: 48 Text: Status: Complete Freq: Document 03/05/17 16:48 GSUN (Rec: 03/05/17 17:08 GSUN [email or web address]) Nutritional Asmnt/Malnutrition Patient General Information Nutritional Screening Moderate Risk Screening Diagnosis ER: anemia, leukocytosis, hypokalemia, dementia with agitaion Pertinent Medical Hx/Surgical Hx ER: DM, dementia, Alzheimer's disease Subjective Information 87 year old female from SNF, [place] speaking. Per EXECUTIVE ADMINISTRATOR, pt is confused, unable to interview. RAÚL Lundy and EXECUTIVE ADMINISTRATOR holding pt down to do accuchecks and administer insulin during visit. Pt was combative, biting and grabbing staff. Pt appeared thin, unable to perform physical assessment, however pt noted with great strength for age. EXECUTIVE ADMINISTRATOR stated pt with good appetite, especially when family visits. 03/02 100% of meals, meeting nutritional needs. Pt has a g-tube scar. Current Diet Order/ Nutrition Support Pureed Pertinent Medications Maalox, Colace, Novolog, Levemir, MOM, Theragran, Seroquel Pertinent Labs POC glucose 46-362 range since adm. 1 episode of hypoglycemia 50 46 on 03/03 morning, otherwise > 150. Nutritional Hx/Data Height 1.57 m Height (Calculated Centimeters) 157.5 Current Weight (lbs) 47.083 kg Weight (Calculated Kilograms) 47.1 Weight (Calculated Grams) 16725.9 [place] Body Weight 110 Weight Status Approriate GI Symptoms Skin Integrity/Comment: Toni 15. G-tube scar, upper cheek abrasion. Current %PO Good (75-100%) Estimated Nutritional Goals Calories/Kcals/Kg IBW 110lb/50kg (underweight for age, promote weight gain) Kcals Calculated 1250-1500kcal (25-30kcal/kg) Protein Calculated 50g (1g/kg) Fluid: ml 1250-1500ml (1ml/kcal) Nutritional Problem 1. Problem Problem No nutritional problem at this time. Intervention/Recommendation Comments 1. Recommend [id number]. Provide assistance with meals. Pt noted with good appetite. Expected Outcomes/Goals Expected Outcomes/Goals 1. PO intake to meet at least 75% of estimated nutritional needs.
[2017-03-11] MEDS: Escitalopram Oxalate 5 mg Tab PO SCH (20:42)
[2017-03-12] MEDS: INSULIN ASPART SLIDING SCALE 100 UNITS/ML UNIT SUBQ SCH ×3 (06:33→20:18)
[2017-03-12] MEDS: Insulin Detemir 100 units/mL 10mL Vial SUBQ SCH (17:23)
[2017-03-12] MEDS: Multivitamin Tab PO SCH (17:24)
[2017-03-12] MEDS: Triple Antibiotic 0.94 gm Pkt TP SCH (17:24)
[2017-03-12] MEDS: Escitalopram Oxalate 5 mg Tab PO SCH (20:16)
[2017-03-12] MEDS: Haloperidol Lactate 5 mg/mL 1mL Vial IM PRN (21:02)
[2017-03-13] MEDS: INSULIN ASPART SLIDING SCALE 100 UNITS/ML UNIT SUBQ SCH ×3 (06:44→21:23)
[2017-03-13] MEDS: Haloperidol Lactate 5 mg/mL 1mL Vial IM PRN (10:04)
[2017-03-13] MEDS: Triple Antibiotic 0.94 gm Pkt TP SCH (10:05)
[2017-03-13] MEDS: Multivitamin Tab PO SCH (10:06)
[2017-03-13] MEDS: Insulin Detemir 100 units/mL 10mL Vial SUBQ SCH ×2 (10:06→16:51)
[2017-03-13] MEDS: Escitalopram Oxalate 5 mg Tab PO SCH (20:55)
[2017-03-13] MEDS ORDERED: INSULIN ASPART, RECOMBINANT 100 UNITS/ML SUBQ ONE (21:56)
[2017-03-14] MEDS: INSULIN ASPART SLIDING SCALE 100 UNITS/ML UNIT SUBQ SCH ×4 (06:51→21:09)
[2017-03-14] MEDS: Multivitamin Tab PO SCH (08:53)
[2017-03-14] MEDS: Triple Antibiotic 0.94 gm Pkt TP SCH (08:54)
[2017-03-14] MEDS: Insulin Detemir 100 units/mL 10mL Vial SUBQ SCH ×2 (09:36→17:20)
[2017-03-14] MEDS: Haloperidol Lactate 5 mg/mL 1mL Vial IM PRN ×2 (09:37→18:00)
[2017-03-14 16:08] LABS: ALKALINE PHOSPHATASE 96 U/L (34-104); ANION GAP 13.7 (7.0-16.0); BILIRUBIN,TOTAL 0.5 mg/dL (0.3-1.0); BUN - UREA NITROGEN 49 mg/dL (7-25); BUN/CREATININE RATIO 37.7; CALCIUM SERUM 9.8 mg/dL (8.6-10.3); CHLORIDE 121 mEq/L (98-107); CREATININE - SERUM 1.3 mg/dL (0.6-1.2); GLUCOSE 161 mg/dL (70-105); POTASSIUM SERUM 3.7 mEq/L (3.5-5.1); SGOT 27 U/L (13-39); SGPT/ALT 16 U/L (7-52)
[2017-03-14 16:16] LABS: SODIUM SERUM 158 mEq/L (136-145)
--- NOTE | 2017-03-14 21:07 | General Progress Note ---
Subjective - Review of Systems Service Date: 03/14/17 Subjective: Patient seen and examined nurse reported patient has not been eating drinking well last night Blood sugar reported 700+ Objective - Results Result Diagrams: 03/01/17 15:35 03/14/17 15:38 Recent Labs: Laboratory Last Values WBC 11.1 Th/cmm (4.8-10.8) H 03/01/17 15:35 RBC 4.07 Mil/cmm (3.80-5.20) 03/01/17 15:35 Hgb 11.6 gm/dL (11.7-16.1) L 03/01/17 15:35 Hct 34.9 % (35.0-45.0) L 03/01/17 15:35 MCV 85.8 fl (81-100) 03/01/17 15:35 MCH 28.6 pg (27.0-31.0) 03/01/17 15:35 MCHC Differential 33.4 pg (28.0-36.0) 03/01/17 15:35 RDW 13.8 % (11.5-20.0) 03/01/17 15:35 Plt Count 337 Th/cmm (150-400) 03/01/17 15:35 MPV 9.9 fl 03/01/17 15:35 Neutrophils % 67.8 % (40.0-80.0) 03/01/17 15:35 Lymphocytes % 24.8 % (20.0-50.0) 03/01/17 15:35 Monocytes % 6.0 % (2.0-10.0) 03/01/17 15:35 Eosinophils % 1.1 % (0.0-5.0) 03/01/17 15:35 Basophils % 0.3 % (0.0-2.0) 03/01/17 15:35 Sodium 158 mEq/L (136-145) H 03/14/17 15:38 Potassium 3.7 mEq/L (3.5-5.1) 03/14/17 15:38 Chloride 121 mEq/L (98-107) H 03/14/17 15:38 Carbon Dioxide 27.0 mEq/L (21.0-31.0) 03/14/17 15:38 Anion Gap 13.7 (7.0-16.0) 03/14/17 15:38 BUN 49 mg/dL (7-25) H 03/14/17 15:38 Creatinine 1.3 mg/dL (0.6-1.2) H 03/14/17 15:38 Est GFR ( Amer) TNP 03/14/17 15:38 Est GFR (Non-Af Amer) TNP 03/14/17 15:38 BUN/Creatinine Ratio 37.7 03/14/17 15:38 Glucose 161 mg/dL (70-105) H 03/14/17 15:38 POC Glucose 111 MG/DL (70 - 105) H 03/14/17 20:21 Hemoglobin A1c % 9.1 % (4.0-6.0) H 03/13/17 22:33 Calcium 9.8 mg/dL (8.6-10.3) 03/14/17 15:38 Total Bilirubin 0.5 mg/dL (0.3-1.0) 03/14/17 15:38 AST 27 U/L (13-39) 03/14/17 15:38 ALT 16 U/L (7-52) 03/14/17 15:38 Alkaline Phosphatase 96 U/L (34-104) 03/14/17 15:38 B-Natriuretic Peptide 139.0 pg/mL (5.0-100.0) H 03/14/17 15:38 Total Protein 8.1 gm/dL (6.0-8.3) 03/14/17 15:38 Albumin 4.1 gm/dL (3.7-5.3) 03/14/17 15:38 Globulin 4.0 gm/dL 03/14/17 15:38 Albumin/Globulin Ratio 1.0 (1.0-1.8) 03/14/17 15:38 Triglycerides 163 mg/dL (<150) H 03/01/17 15:35 Cholesterol 191 mg/dL (<200) 03/01/17 15:35 LDL Cholesterol Direct 114 mg/dL (75-193) 03/01/17 15:35 HDL Cholesterol 50 mg/dL (23-92) 03/01/17 15:35 TSH 1.12 uIU/ml (0.34-5.60) 03/01/17 15:35 Urine Source CLEAN C 03/01/17 16:05 Urine Color YELLOW 03/01/17 16:05 Urine Clarity CLEAR (CLEAR) 03/01/17 16:05 Urine pH 7.5 03/01/17 16:05 Ur Specific [place] 1.010 (1.005-1.030) 03/01/17 16:05 Urine Protein NEGATIVE mg/dL (NEGATIVE) 03/01/17 16:05 Urine Glucose (UA) 250 mg/dL (NEGATIVE) H 03/01/17 16:05 Urine Ketones NEGATIVE mg/dL (NEGATIVE) 03/01/17 16:05 Urine Blood NEGATIVE (NEGATIVE) 03/01/17 16:05 Urine Nitrate NEGATIVE (NEGATIVE) 03/01/17 16:05 Urine Bilirubin NEGATIVE (NEGATIVE) 03/01/17 16:05 Urine Urobilinogen 1.0 E.U./dL (0.2 - 1.0) 03/01/17 16:05 Ur Leukocyte Esterase NEGATIVE (NEGATIVE) 03/01/17 16:05 Urine RBC NONE SEEN /hpf (0-5) 03/01/17 16:05 Urine WBC NONE SEEN /hpf (0-5) 03/01/17 16:05 Ur Epithelial Cells NONE SEEN /lpf (FEW) 03/01/17 16:05 Urine Bacteria NONE SEEN /hpf (NONE SEEN) 03/01/17 16:05 Salicylates < 25.0 mg/L (30.0-100.0) L 03/01/17 15:35 Urine Opiates Screen NEGATIVE (NEGATIVE) 03/01/17 16:05 Urine Methadone Screen NEGATIVE (NEGATIVE) 03/01/17 16:05 Acetaminophen < 10.0 ug/mL (10.0-30.0) L 03/01/17 15:35 Ur Barbiturates Screen NEGATIVE (NEGATIVE) 03/01/17 16:05 Ur Tricyclics Screen POSITIVE (NEGATIVE) H 03/01/17 16:05 Ur Phencyclidine Scrn NEGATIVE (NEGATIVE) 03/01/17 16:05 Amphetamines Screen NEGATIVE (NEGATIVE) 03/01/17 16:05 U Methamphetamines Scrn NEGATIVE (NEGATIVE) 03/01/17 16:05 U Benzodiazepines Scrn NEGATIVE (NEGATIVE) 03/01/17 16:05 U Cocaine Metab Screen NEGATIVE (NEGATIVE) 03/01/17 16:05 U Cannabinoids Screen NEGATIVE (NEGATIVE) 03/01/17 16:05 Ethyl Alcohol < 10 mg/dL (0-10) 03/01/17 15:35 RPR NONREACTIVE (NONREACTIVE) 03/01/17 15:35 Hepatitis A IgM Ab Negative (Negative) 03/01/17 15:35 Hep Bs Antigen Negative (Negative) 03/01/17 15:35 Hep B Core IgM Ab Negative (Negative) 03/01/17 15:35 Hepatitis C Antibody <0.1 s/co ratio (0.0-0.9) 03/01/17 15:35 - Physical Exam Vitals and I&O: Vital Signs Temp 100.4 F 03/14/17 18:26 Pulse 92 03/14/17 18:26 Resp 20 03/14/17 18:26 BP 116/75 03/14/17 18:26 Pulse Ox 100 03/14/17 18:26 Intake & Output 03/14/17 03/14/17 03/15/17 06:59 18:59 06:59 Intake Total 700 0 Balance 700 0 Intake: Oral 700 0 Other: # Voids 3 2 1 # Bowel Movements 0 0 Active Medications: Current Medications Acetaminophen (Tylenol) 650 mg PO Q4HR PRN PRN Reason: Mild Pain / Temp above 100 Stop: 04/30/17 19:57 Last Admin: 03/11/17 12:48 Dose: 650 mg Acetaminophen/Hydrocodone Bitart ([place] 10 Mg/325 Mg) 1 tab PO Q4HR PRN PRN Reason: Pain (Moderate) Stop: 04/30/17 20:23 Al Hydrox/Mg Hydrox/Simethicone (Maalox) 30 ml PO Q4HR PRN PRN Reason: GI DISTRESS Stop: 04/30/17 19:57 Amlodipine Besylate (Norvasc) 5 mg PO DAILY [facility] Stop: 05/01/17 08:59 Last Admin: 03/14/17 08:54 Dose: Not Given Diphenhydramine HCl (Benadryl 50 Mg/Ml) 25 mg IM BID PRN PRN Reason: Agitation Stop: 05/11/17 14:23 Last Admin: 03/14/17 18:00 Dose: 25 mg Docusate Sodium (Colace) 250 mg PO DAILY JAMES Stop: 05/01/17 08:59 Last Admin: 03/14/17 09:01 Dose: Not Given Donepezil HCl (Aricept) 10 mg PO HS [facility] Stop: 04/30/17 20:59 Last Admin: 03/13/17 20:55 Dose: Not Given Escitalopram Oxalate (Lexapro) 10 mg PO HS JAMES PRN Reason: Protocol Stop: 05/02/17 12:10 Last Admin: 03/13/17 20:55 Dose: Not Given Haloperidol (Haldol) 3 mg PO BID JAMES PRN Reason: Protocol Stop: 05/11/17 16:59 Last Admin: 03/14/17 18:01 Dose: Not Given Haloperidol Lactate (Haldol) 3 mg IM BID PRN PRN Reason: Agitation Stop: 05/11/17 14:23 Last Admin: 03/14/17 18:00 Dose: 3 mg Hydralazine HCl (Apresoline) 10 mg PO Q6HR JAMES Stop: 05/01/17 05:59 Last Admin: 03/14/17 17:40 Dose: Not Given Insulin Aspart (Novolog Insulin Sliding Scale) 0 units SUBQ ACHS JAMES PRN Reason: Protocol Stop: 04/30/17 20:59 Last Admin: 03/14/17 17:20 Dose: 1,000 units Insulin Detemir (Levemir Insulin) 25 units SUBQ BID JAMES Stop: 05/01/17 08:59 Last Admin: 03/14/17 17:20 Dose: 25 units Lorazepam (Ativan) 0.5 mg PO Q4HR PRN; Protocol PRN Reason: Anxiety Stop: 03/31/17 19:57 Last Admin: 03/11/17 12:48 Dose: 0.5 mg Magnesium Hydroxide (Milk Of Magnesia) 30 ml PO HS PRN PRN Reason: Constipation Stop: 04/30/17 19:57 Memantine (Namenda) 10 mg PO DAILY [facility] Stop: 05/01/17 08:59 Last Admin: 03/14/17 08:53 Dose: Not Given Multivitamins/Vitamin C (Theragran) 1 tab PO DAILY [facility] Stop: 05/01/17 08:59 Last Admin: 03/14/17 08:53 Dose: Not Given Zolpidem Tartrate (Ambien) 5 mg PO HS PRN PRN Reason: Insomnia Stop: 04/30/17 19:57 Last Admin: 03/01/17 22:29 Dose: 5 mg General: No acute distress Cardiovascular: Regular rate Lungs: Clear to auscultation Psych/Mental Status: Other (very confused) Assessment/Plan - Assessment Assessment: SUPERFICIAL WOUND RIGHT INNER LOWER EYELID AREA healing Mild dehydration DM II with Hyperglycemia HTN NON COMPLIANCE DEMENTIA ALZHEIMER TYPE MENTAL HEALTH DISORDER - Plan Plan: Lab result discused with the nurse Encourage to increase oral liquids Follow labs in 3 days Accucheck ISS coverage Monitor vitals Fall precaution Psych management per Psychiatrist Plan of care discussed with nursing staff Nutritional Asmnt/Malnutr-PDOC - Dietary Evaluation Malnutrition Findings (Please click <Entered> for more info): Nutritional Asmnt/Malnutrition Start: 03/05/17 16: 48 Text: Status: Complete Freq: Document 03/05/17 16:48 GSUN (Rec: 03/05/17 17:08 GSUN [email or web address]) Nutritional Asmnt/Malnutrition Patient General Information Nutritional Screening Moderate Risk Screening Diagnosis ER: anemia, leukocytosis, hypokalemia, dementia with agitaion Pertinent Medical Hx/Surgical Hx ER: DM, dementia, Alzheimer's disease Subjective Information 87 year old female from SNF, [place]ian speaking. Per RADIO STATION ENGINEER, pt is confused, unable to interview. RAÚL Lundy and RADIO STATION ENGINEER holding pt down to do accuchecks and administer insulin during visit. Pt was combative, biting and grabbing staff. Pt appeared thin, unable to perform physical assessment, however pt noted with great strength for age. RADIO STATION ENGINEER stated pt with good appetite, especially when family visits. 03/02 100% of meals, meeting nutritional needs. Pt has a g-tube scar. Current Diet Order/ Nutrition Support Pureed Pertinent Medications Maalox, Colace, Novolog, Levemir, MOM, Theragran, Seroquel Pertinent Labs POC glucose 46-362 range since adm. 1 episode of hypoglycemia 50 46 on 03/03 morning, otherwise > 150. Nutritional Hx/Data Height 1.57 m Height (Calculated Centimeters) 157.5 Current Weight (lbs) 47.083 kg Weight (Calculated Kilograms) 47.1 Weight (Calculated Grams) 53333.9 [place] Body Weight 110 Weight Status Approriate GI Symptoms Skin Integrity/Comment: Toni 15. G-tube scar, upper cheek abrasion. Current %PO Good (75-100%) Estimated Nutritional Goals Calories/Kcals/Kg IBW 110lb/50kg (underweight for age, promote weight gain) Kcals Calculated 1250-1500kcal (25-30kcal/kg) Protein Calculated 50g (1g/kg) Fluid: ml 1250-1500ml (1ml/kcal) Nutritional Problem 1. Problem Problem No nutritional problem at this time. Intervention/Recommendation Comments 1. Recommend [id number]. Provide assistance with meals. Pt noted with good appetite. Expected Outcomes/Goals Expected Outcomes/Goals 1. PO intake to meet at least 75% of estimated nutritional needs.
[2017-03-14] MEDS: Escitalopram Oxalate 5 mg Tab PO SCH (21:09)
[2017-03-15] MEDS: INSULIN ASPART SLIDING SCALE 100 UNITS/ML UNIT SUBQ SCH (06:49)
[2017-03-15] MEDS: Insulin Detemir 100 units/mL 10mL Vial SUBQ SCH (09:39)
[2017-03-15] MEDS: Multivitamin Tab PO SCH (09:40)
== END 2017-03-15 11:15 | DRG 57 ==
LOC: ER 13:30 → GERO 17:00
PROVIDERS: ADMIT Psychiatry & Neurology Psychiatry; ATTEND Psychiatry & Neurology Psychiatry
DX: G30.9 Alzheimer's disease, unspecified (principal); E11.65 Type 2 diabetes mellitus with hyperglycemia; F02.80 Dementia in other diseases classified elsewhere, unspecified severity, without behavioral disturbance, psychotic disturbance, mood disturbance, and anxiety; Z93.1 Gastrostomy status; F29 Unspecified psychosis not due to a substance or known physiological condition; I10 Essential (primary) hypertension; D64.9 Anemia, unspecified; D72.829 Elevated white blood cell count, unspecified; S00.201A Unspecified superficial injury of right eyelid and periocular area, initial encounter; E86.0 Dehydration; X58.XXXA Exposure to other specified factors, initial encounter; E87.6 Hypokalemia; Z91.19 Patient's noncompliance with other medical treatment and regimen; Y93.89 Activity, other specified; Y92.89 Other specified places as the place of occurrence of the external cause; Y99.8 Other external cause status
CPT/HCPCS: 36415-UA; 80053-TC; 80061-TC; 80074-90; 80307; 80320-TC; 80329-TC; 81001-TC; 82947-TC; 82948-90; 83036-90; 83880-TC; 84443-TC; 85025-TC; 86592-TC; 90899; 93005; J1200; J1630; J1815; J2060; X3401; X4304; Z7610

== ENCOUNTER 2017-03-15 08:31 | Inpatient (IN) | payer MEDICARE, OTHER ==
[2017-03-15] MEDS ORDERED: Magnesium Hydroxide (MOM) 30 mL UDC PO PRN (11:27)
[2017-03-15] MEDS ORDERED: INSULIN HUMAN REGULAR 100 UNITS/ML UNIT SUBQ SCH (11:30)
[2017-03-15] MEDS ORDERED: cefTRIAXone 1 GM in Sodium Chloride 0.9% 50 ML IV SCH (11:30)
[2017-03-15] MEDS ORDERED: Sodium Chloride 0.9% 1,000 ML IV SCH (11:30)
[2017-03-15 15:29] LABS: % BASOPHILS 1.5 % (0.0-2.0); % EOSINOPHILS 0.1 % (0.0-5.0); % LYMPHOCYTES 15.2 % (20.0-50.0); % MONOCYTES 4.7 % (2.0-10.0); % NEUTROPHILS 78.5 % (40.0-80.0); HEMATOCRIT 40.8 % (35.0-45.0); HEMOGLOBIN 13.2 gm/dL (11.7-16.1); MEAN CELL VOLUME 87.1 fl (81-100); MEAN CORPUSCULAR HEMOGLOBIN 28.2 pg (27.0-31.0); MEAN CORPUSCULAR HGB CONC 32.4 pg (28.0-36.0); MEAN PLATELET VOLUME 9.7 fl; NEUTROPHILE ABSOLUTE 12.8 Th/cmm (1.8-8.0); PLATELET COUNT 278 Th/cmm (150-400); RED BLOOD COUNT 4.68 Mil/cmm (3.80-5.20); RED CELL DISTRIBUTION WIDTH 14.8 % (11.5-20.0)
[2017-03-15 16:14] LABS: WHITE BLOOD COUNT 16.3 Th/cmm (4.8-10.8)
[2017-03-15 16:18] LABS: ANION GAP 12.3 (7.0-16.0); BUN/CREATININE RATIO 40.5; CALCIUM SERUM 9.3 mg/dL (8.6-10.3); CARBON DIOXIDE 23.1 mEq/L (21.0-31.0); CHLORIDE 124 mEq/L (98-107); GLUCOSE 173 mg/dL (70-105); POTASSIUM SERUM 3.4 mEq/L (3.5-5.1); SODIUM SERUM 156 mEq/L (136-145)
[2017-03-15 16:23] LABS: BUN - UREA NITROGEN 81 mg/dL (7-25)
[2017-03-15] MEDS ORDERED: Insulin Detemir 100 units/mL 10mL Vial SUBQ SCH (17:00)
[2017-03-15] MEDS: D5-0.45NS 1,000 ML IV SCH (18:07)
--- NOTE | 2017-03-15 19:02 | History and Physical ---
History of Present Illness - HPI Chief Complaint: Lethargy HPI: 87 Female with underlying DM II HTN Dementia Mental health disorder who was [facility] to [facility] FLOOR due to lethargy associated with fever. Patient was diagnosed with Dehydration and possible sepsis. She was started on high flow IV Fluids and antibiotics. During my evaluation patient seems lethargic unable to communicate well. Vital Signs: Last Vital Signs Temp 100 F 03/15/17 11:32 Pulse 112 03/15/17 17:15 Resp 16 03/15/17 11:32 BP 148/74 03/15/17 17:15 Pulse Ox 96 03/15/17 11:32 Past Medical History Cardiovascular: Report: HTN Pulmonary: Denies: COPD [employer]: Report: Dementia. Denies: CVA, Seizure Psych: Report: Other (mental health disorder) Musculoskeletal: Report: No Pertinent Hx Infectious Disease: Report: No Pertinent Hx Renal/: Report: No Pertinent Hx Endocrine: Report: Diabetes. Denies: Hypothyroidism - Past Surgical History Past Surgical History: No pertinent Hx Family Medical History - Family Member Mother History Unknown: Yes Social History Smoke: No Alcohol: None Drugs: None Lives: With Family - Medications Home Medications: Home Medication Medication Instructions Recorded Type Hydrocodone/APAP 10 mg/325 mg 1 tab PO Q4HR PRN 03/01/17 History [[place] 10 mg/325 mg] amLODIPine Besylate [Norvasc] 5 mg PO DAILY 03/01/17 History Acetaminophen [Tylenol] 650 mg PO Q4HR PRN tab 03/15/17 Rx Al Hyd/Mg Hyd/Simethicone [Maalox] 30 ml PO Q4HR PRN udc 03/15/17 Rx Docusate Sodium [Stool Softener] 250 mg PO DAILY #0 03/15/17 Rx Donepezil Hcl [Aricept] 10 mg PO HS #0 03/15/17 Rx Escitalopram Oxalate [Lexapro] 10 mg PO HS tab 03/15/17 Rx Haloperidol Lactate [Haldol*] 3 mg IM BID PRN vial 03/15/17 Rx Haloperidol [Haldol*] 3 mg PO BID tab 03/15/17 Rx Hydralazine [Apresoline*] 10 mg PO Q6HR tab 03/15/17 Rx Insulin Detemir [Levemir] 25 unit SQ BID #0 03/15/17 Rx Insulin Human Regular [NovoLIN R*] 0 units SUBQ ACHS #0 03/15/17 Rx Lorazepam [Ativan] 0.5 mg PO Q4HR PRN tab 03/15/17 Rx Magnesium Hydroxide [Milk of 30 ml PO HS PRN udc 03/15/17 Rx Magnesia] Memantine HCl [Namenda] 10 mg PO DAILY #0 03/15/17 Rx Multivitamin [Theragran] 1 tab PO DAILY tab 03/15/17 Rx Zolpidem Tartrate [Ambien] 5 mg PO HS PRN tab 03/15/17 Rx diphenhydrAMINE [Benadryl 50 25 mg IM BID PRN vial 03/15/17 Rx mg/mL] - Allergies Allergies/Adverse Reactions: Allergies Allergy/AdvReac Type Severity Reaction Status Date / Time No Known Allergies Allergy Verified 03/01/17 15:12 Review of Systems - Review of Systems Constitutional: Report: Fever Eyes: Report: Other ENT: Report: Other Respiratory: Report: Other Cardiovascular: Report: Other Gastrointestinal: Report: Other Genitourinary: Report: Other Musculoskeletal: Report: Other Skin: Report: Other Neurological: Report: Other Other: Unobtainable due to AMS Physical Exam - Physical Exam Cardiovascular Systems: Report: Tachycardia Respiratory: Report: Clear to Auscultation of lung trotter Abdomen: Report: Non-tender to palpation Extremities: Report: No pedal edema was noted on inspection Skin: Report: Color of skin is within normal limits, Warm, No Rashes noted of the skin Neuro/Psych: Report: Disoriented to name time or place (Lethrgic unable to follow command) - Lab Results All Lab Results last 24 hours: Laboratory Last Values WBC 16.3 Th/cmm (4.8-10.8) H D 03/15/17 15:23 RBC 4.68 Mil/cmm (3.80-5.20) 03/15/17 15:23 Hgb 13.2 gm/dL (11.7-16.1) 03/15/17 15:23 Hct 40.8 % (35.0-45.0) D 03/15/17 15:23 MCV 87.1 fl (81-100) 03/15/17 15:23 MCH 28.2 pg (27.0-31.0) 03/15/17 15:23 MCHC Differential 32.4 pg (28.0-36.0) 03/15/17 15:23 RDW 14.8 % (11.5-20.0) 03/15/17 15:23 Plt Count 278 Th/cmm (150-400) 03/15/17 15:23 MPV 9.7 fl 03/15/17 15:23 Neutrophils % 78.5 % (40.0-80.0) 03/15/17 15:23 Lymphocytes % 15.2 % (20.0-50.0) L 03/15/17 15:23 Monocytes % 4.7 % (2.0-10.0) 03/15/17 15: Eosinophils % 0.1 % (0.0-5.0) 03/15/17: Basophils % 1.5 % (0.0-2.0) 03/15/17 15:23 Sodium 156 mEq/L (136-145) H 03/15/17 15:23 Potassium 3.4 mEq/L (3.5-5.1) L 03/15/17 15:23 Chloride 124 mEq/L (98-107) H 03/15/17 15:23 Carbon Dioxide 23.1 mEq/L (21.0-31.0) 03/15/17 15:23 Anion Gap 12.3 (7.0-16.0) 03/15/17 15:23 BUN 81 mg/dL (7-25) H* 03/15/17 15:23 Creatinine 2.0 mg/dL (0.6-1.2) H 03/15/17 15:23 Est GFR ( Amer) TNP 03/15/17 15:23 Est GFR (Non-Af Amer) TNP 03/15/17 15:23 BUN/Creatinine Ratio 40.5 03/15/17 15:23 Glucose 173 mg/dL (70-105) H 03/15/17 15:23 POC Glucose 174 MG/DL (70 - 105) H 03/15/17 15:18 Calcium 9.3 mg/dL (8.6-10.3) 03/15/17 15:23 Laboratory Results - last 24 hr 03/15/17 03/15/17 03/15/17 15:18 15:23 15:23 WBC 16.3 H D RBC 4.68 Hgb 13.2 Hct 40.8 D MCV 87.1 MCH 28.2 MCHC Differential 32.4 RDW 14.8 Plt Count 278 MPV 9.7 Neutrophils % 78.5 Lymphocytes % 15.2 L Monocytes % 4.7 Eosinophils % 0.1 Basophils % 1.5 Sodium 156 H Potassium 3.4 L Chloride 124 H Carbon Dioxide 23.1 Anion Gap 12.3 BUN 81 H* Creatinine 2.0 H Est GFR ( Amer) TNP Est GFR (Non-Af Amer) TNP BUN/Creatinine Ratio 40.5 Glucose 173 H POC Glucose 174 H Calcium 9.3 - Assessment Assessment: Lethargy Dehydration Acute kindney injury Sepsis unclear source Advance dementia Mental health disorder DM II HTN - Plan Plan: Patient was started on high flow IV Fluids IV Rocehine started Blood culture Urine culture Chest xray ID and Nephrology consulted. Case discussed with both specialist DC psychotropic meds Psych agreed Follow up labs in am Accucheck and ISS coverage Renal US ordered PT/OT/ST eval Follow up labs in am Daughter was updated on pt's condition and treatment plan .She understood well Daughter verbalized pt is DNR code status Plan of care discussed with nursing staff
[2017-03-15] MEDS ORDERED: Escitalopram Oxalate 5 mg Tab PO SCH (21:00)
[2017-03-15] MEDS: INSULIN ASPART SLIDING SCALE 100 UNITS/ML UNIT SUBQ SCH (21:33)
--- NOTE | 2017-03-15 21:58 | Consultation ---
Consult Note - Consult Note Service Date: 03/15/17 Referring Physician: Cliff Tapia Consult Note: PHYSICIAN Consultation Note: Date of Admission: 03/15/17 Purpose of Consultation: Chief Complaint: Patient OTIS PRATER was admitted to location Intensive Care Unit with DEHYDRATION. History of Present Illness: 87-year-old female with past medical history of dementia, psychosis, diabetes mellitus type 2, hypertension, brought from geropsychiatric unit for increased lethargy and fever. This and is unable to give any appropriate history. In the geropsychiatric unit, her temperature went up to 102.5F and WBC count was 6300. Her urine looks cloudy. Patient was started on Rocephin. ID consult was called for antibiotic management. meanwhile, patient's was transferred to the ICU as per family's request. Patient is poor historian, unable to give any history. Besides this, on creatinine went up to 2.0. Past Medical History: Diabetes mellitus type 2, hypertension, psychosis, dementia. Allergies Allergy/AdvReac Type Severity Reaction Status Date / Time No Known Allergies Allergy Verified 03/01/17 15:12 Vital Signs Temp 100.3 F 03/15/17 20:00 Pulse 104 03/15/17 20:00 Resp 24 03/15/17 20:00 BP 141/72 03/15/17 20:00 Pulse Ox 97 03/15/17 20:00 Laboratory Results - last 24 hr 03/15/17 03/15/17 03/15/17 15:18 15:23 15:23 WBC 16.3 H D RBC 4.68 Hgb 13.2 Hct 40.8 D MCV 87.1 MCH 28.2 MCHC Differential 32.4 RDW 14.8 Plt Count 278 MPV 9.7 Neutrophils % 78.5 Lymphocytes % 15.2 L Monocytes % 4.7 Eosinophils % 0.1 Basophils % 1.5 Sodium 156 H Potassium 3.4 L Chloride 124 H Carbon Dioxide 23.1 Anion Gap 12.3 BUN 81 H* Creatinine 2.0 H Est GFR ( Amer) TNP Est GFR (Non-Af Amer) TNP BUN/Creatinine Ratio 40.5 Glucose 173 H POC Glucose 174 H Calcium 9.3 03/15/17 20:57 WBC RBC Hgb Hct MCV MCH MCHC Differential RDW Plt Count MPV Neutrophils % Lymphocytes % Monocytes % Eosinophils % Basophils % Sodium Potassium Chloride Carbon Dioxide Anion Gap BUN Creatinine Est GFR ( Amer) Est GFR (Non-Af Amer) BUN/Creatinine Ratio Glucose POC Glucose 248 H Calcium Home Medication Medication Instructions Recorded Type Hydrocodone/APAP 10 mg/325 mg 1 tab PO Q4HR PRN 03/01/17 History [[place] 10 mg/325 mg] amLODIPine Besylate [Norvasc] 5 mg PO DAILY 03/01/17 History Acetaminophen [Tylenol] 650 mg PO Q4HR PRN tab 03/15/17 Rx Al Hyd/Mg Hyd/Simethicone [Maalox] 30 ml PO Q4HR PRN udc 03/15/17 Rx Docusate Sodium [Stool Softener] 250 mg PO DAILY #0 03/15/17 Rx Donepezil Hcl [Aricept] 10 mg PO HS #0 03/15/17 Rx Escitalopram Oxalate [Lexapro] 10 mg PO HS tab 03/15/17 Rx Haloperidol Lactate [Haldol*] 3 mg IM BID PRN vial 03/15/17 Rx Haloperidol [Haldol*] 3 mg PO BID tab 03/15/17 Rx Hydralazine [Apresoline*] 10 mg PO Q6HR tab 03/15/17 Rx Insulin Detemir [Levemir] 25 unit SQ BID #0 03/15/17 Rx Insulin Human Regular [NovoLIN R*] 0 units SUBQ ACHS #0 03/15/17 Rx Lorazepam [Ativan] 0.5 mg PO Q4HR PRN tab 03/15/17 Rx Magnesium Hydroxide [Milk of 30 ml PO HS PRN udc 03/15/17 Rx Magnesia] Memantine HCl [Namenda] 10 mg PO DAILY #0 03/15/17 Rx Multivitamin [Theragran] 1 tab PO DAILY tab 03/15/17 Rx Zolpidem Tartrate [Ambien] 5 mg PO HS PRN tab 03/15/17 Rx diphenhydrAMINE [Benadryl 50 25 mg IM BID PRN vial 03/15/17 Rx mg/mL] Current Medications Generic Name Dose Route Start Last Admin Trade Name Freq PRN Reason Stop Dose Admin Acetaminophen 650 mg 03/15/17 19:13 Tylenol 650mg Supp RC 05/14/17 19:12 Q4H PRN Fever >101 Ceftriaxone Sodium 1 gm/ 50 mls @ 100 mls/hr 03/15/17 11:30 Sodium Chloride IV 05/14/17 11:29 Q24HR JAMES Dextrose/Sodium Chloride 1,000 mls @ 100 mls/hr 03/15/17 17:52 03/15/17 18:07 D5-0.45ns IV 05/14/17 17:51 100 mls/hr .Q10H JAMES Administration Insulin Aspart 0 units 03/15/17 21:00 03/15/17 21:33 Novolog Insulin Sliding Scale SUBQ 05/14/17 20:59 2 units ACHS JAMES Administration Protocol Ondansetron HCl 4 mg 03/15/17 19:14 Zofran IV 05/14/17 19:13 Q6H PRN Nausea / Vomiting Review of Systems: A 12 point ROS was reviewed with the pertinent positive and negatives noted in the HPI. Social History Smoking Status Never smoker Drug Use No Alcohol Use No Physical Exam: General: Comfortable, aggressive, cachectic. HEENT: Head: Normocephalic, atraumatic. Oral cavity: Moist, pink tongue. Eyes : Pallor is present. Neck tenderness. Peripheral PERRLA. Neck: Supple, no JVD, no carotid bruit. No use of accessory neck muscle. Cardio: S1 and S2 within normal limits and rhythm, no murmur. Respiratory: Sacral, no crackles, no wheezing. Abdominal: Soft, nontender, nondistended. Bowel sounds present. Genital/Urinary: Dean in the place with cloudy urine. Extremities: No cyanosis, no clubbing, no edema. Neurological: Confused, aggressive, hitting the staff. Assessment: 1. Leukocytosis with fever, sepsis. 2. Acute kidney injury. 3. Psychosis. 4. Hypertension. 5. Diabetes mellitus type II. Plan: Continue Rocephin. Check lactic acid. Check sepsis workup. Thank you, Dr. Tapia, for involving me taking care of this patient. Signed, Landon Parsons M.D. [id number]
[2017-03-15] MEDS ORDERED: KCL 20mEq/100mL Premix 20 MEQ/100 ML PIGGYBACK IV ONE (22:56)
[2017-03-15 23:05] LABS: URINE BILIRUBIN NEGATIVE (NEGATIVE); URINE BLOOD MODERATE (NEGATIVE); URINE COLOR YELLOW; URINE GLUCOSE (UA) NEGATIVE (NEGATIVE); URINE KETONE TRACE mg/dL (NEGATIVE); URINE PH 5.5; URINE PROTEIN >300 mg/dL (NEGATIVE); URINE UROBILINOGEN 0.2 E.U./dL (0.2 - 1.0)
[2017-03-15 23:06] LABS: URINE AMORPHOUS SEDIMENT MODERATE URATES (NONE SEEN); URINE BACTERIA MANY /hpf (NONE SEEN); URINE EPITHELIAL CELLS FEW /lpf (FEW)
[2017-03-16 05:38] LABS: HEMATOCRIT 38.1 % (35.0-45.0); HEMOGLOBIN 12.1 gm/dL (11.7-16.1); MEAN CELL VOLUME 88.8 fl (81-100); MEAN CORPUSCULAR HEMOGLOBIN 28.2 pg (27.0-31.0); MEAN CORPUSCULAR HGB CONC 31.8 pg (28.0-36.0); MEAN PLATELET VOLUME 10.1 fl; RED BLOOD COUNT 4.29 Mil/cmm (3.80-5.20); RED CELL DISTRIBUTION WIDTH 15.2 % (11.5-20.0)
[2017-03-16 05:39] LABS: ALB/GLOB RATIO 0.9 (1.0-1.8); ALKALINE PHOSPHATASE 94 U/L (34-104); ANION GAP 11.4 (7.0-16.0); BILIRUBIN,TOTAL 0.4 mg/dL (0.3-1.0); BUN - UREA NITROGEN 79 mg/dL (7-25); BUN/CREATININE RATIO 43.9; CALCIUM SERUM 8.5 mg/dL (8.6-10.3); CARBON DIOXIDE 23.7 mEq/L (21.0-31.0); CHLORIDE 125 mEq/L (98-107); CREATININE - SERUM 1.8 mg/dL (0.6-1.2); GLUCOSE 381 mg/dL (70-105); PHOSPHOROUS 3.1 mg/dL (2.5-5.0); POTASSIUM SERUM 3.1 mEq/L (3.5-5.1); SGOT 33 U/L (13-39); SGPT/ALT 27 U/L (7-52); SODIUM SERUM 157 mEq/L (136-145)
[2017-03-16] MEDS: D5-0.45NS 1,000 ML IV SCH (06:10)
[2017-03-16 06:14] LABS: PLATELET COUNT 224 Th/cmm (150-400)
[2017-03-16 06:25] LABS: % EOSINOPHILS 0.3 % (0.0-5.0); % LYMPHOCYTES 23.4 % (20.0-50.0); % NEUTROPHILS 69.1 % (40.0-80.0)
[2017-03-16 06:26] LABS: % BASOPHILS 0.2 % (0.0-2.0); NEUTROPHILE ABSOLUTE 9.1 Th/cmm (1.8-8.0)
[2017-03-16] MEDS: INSULIN ASPART SLIDING SCALE 100 UNITS/ML UNIT SUBQ SCH ×4 (06:48→23:00)
[2017-03-16] MEDS ORDERED: Multivitamin Tab PO SCH (09:00)
[2017-03-16] MEDS: Piperacillin/Tazobact 2.25 gm in 0.9% NS 50 ML IV SCH ×2 (09:34→17:01)
[2017-03-16] MEDS: D5W w/20 mEq KCL 1,000 ML IV SCH (09:34)
[2017-03-16] MEDS ORDERED: Haloperidol Lactate 5 mg/mL 1mL Vial IM PRN (11:14)
--- NOTE | 2017-03-16 13:06 | Diagnostic Imaging Report ---
Portable chest x-ray History: Shortness of breath Allowing for portable technique the heart size is normal. No focal pulmonary parenchymal processes. No hilar or mediastinal abnormalities. Diffuse degenerative changes seen to the spine. Impression: No acute abnormalities.
--- NOTE | 2017-03-16 13:11 | Diagnostic Imaging Report ---
Abdominal ultrasound HISTORY: Pain The liver exhibits a homogeneous parenchyma. The gallbladder is not clearly visualized. If the patient is fasting and the gallbladder has not been removed, this finding may be associated with underlying gallbladder disease. If indicated, a radionuclide biliary scan would provide for additional assessment. No biliary dilatation (common bile duct equals 3 mm). The pancreas cannot be seen due to bowel gas. The kidneys appear diminished in size bilaterally. No focal lesions or hydronephrosis. No other definite retroperitoneal or intra-abdominal abnormalities. IMPRESSION: 1. Limited exam due to patient combativeness and bowel gas. 2. Nonvisualization of the gallbladder. In a fasting patient in which the gallbladder has not been removed, this finding may be associated with underlying gallbladder disease. If indicated, a radionuclide biliary scan (HIDA scan) would provide for further assessment of gallbladder function. 2. Slight decrease in renal sizes bilaterally.
--- NOTE | 2017-03-16 13:12 | Diagnostic Imaging Report ---
Ultrasound urinary bladder HISTORY: Oliguria The exam demonstrates changes consistent with an indwelling Dean catheter. No other intraluminal abnormalities are seen. Normal contour of urinary bladder wall. IMPRESSION: 1. Findings consistent with an indwelling Dean catheter
--- NOTE | 2017-03-16 15:31 | Diagnostic Imaging Report ---
CT scan abdomen and pelvis without intravenous contrast HISTORY: Pain, sepsis Axial sections were obtained from the xiphoid process down to the pubic symphysis. Exam is limited due to artifact associated with external electrode monitor leads. Limited sections of the lower chest demonstrate infiltrate within the right lower lobe of the lung. Pneumonia cannot be excluded. The liver exhibits a homogeneous parenchyma. No focal lesions. Surgical clips are seen in the moris hepatis region consistent with a prior cholecystectomy. The spleen appears normal. No focal abnormality seen within the pancreas. No significant focal renal lesions. No hydronephrosis. Cutaneous defect noted over the left anterior abdomen. There is a severely distended stool-filled rectum and lower sigmoid colon. Findings consistent with changes of a fecal impaction. No additional bowel dilatation. Numerous diverticula scattered through the colon. No other abnormal masses or abnormal fluid collections. Diffuse degenerative changes are seen in the spine. A Dean catheter is noted within the urinary bladder. IMPRESSION: 1. Severely distended stool-filled rectum and lower sigmoid colon consistent with a fecal impaction. 2. Diverticulosis 3. Findings of a prior cholecystectomy and additional surgical changes 4. Atherosclerotic vascular changes 5. Infiltrate within the right lower lobe of the lung. Pneumonia cannot be excluded. Clinical correlation is needed.
[2017-03-16] MEDS ORDERED: Fleet Enema 135 mL RC ONE (17:00)
--- NOTE | 2017-03-16 17:20 | General Progress Note ---
Subjective - Review of Systems Service Date: 03/16/17 Subjective: Patient seems more awake was combative earlier this am Objective - Results Result Diagrams: 03/16/17 04:46 03/16/17 04:46 Recent Labs: Laboratory Last Values WBC 13.0 Th/cmm (4.8-10.8) H D 03/16/17 04:46 RBC 4.29 Mil/cmm (3.80-5.20) 03/16/17 04:46 Hgb 12.1 gm/dL (11.7-16.1) 03/16/17 04:46 Hct 38.1 % (35.0-45.0) 03/16/17 04:46 MCV 88.8 fl (81-100) 03/16/17 04:46 MCH 28.2 pg (27.0-31.0) 03/16/17 04:46 MCHC Differential 31.8 pg (28.0-36.0) 03/16/17 04:46 RDW 15.2 % (11.5-20.0) 03/16/17 04:46 Plt Count 224 Th/cmm (150-400) 03/16/17 04:46 MPV 10.1 fl 03/16/17 04:46 Neutrophils % 69.1 % (40.0-80.0) 03/16/17 04:46 Lymphocytes % 23.4 % (20.0-50.0) 03/16/17 04:46 Monocytes % 7.0 % (2.0-10.0) 03/16/17 04:46 Eosinophils % 0.3 % (0.0-5.0) 03/16/17 04:46 Basophils % 0.2 % (0.0-2.0) 03/16/17 04:46 Sodium 157 mEq/L (136-145) H 03/16/17 04:46 Potassium 3.1 mEq/L (3.5-5.1) L 03/16/17 04:46 Chloride 125 mEq/L (98-107) H 03/16/17 04:46 Carbon Dioxide 23.7 mEq/L (21.0-31.0) 03/16/17 04:46 Anion Gap 11.4 (7.0-16.0) 03/16/17 04:46 BUN 79 mg/dL (7-25) H 03/16/17 04:46 Creatinine 1.8 mg/dL (0.6-1.2) H 03/16/17 04:46 Est GFR ( Amer) TNP 03/16/17 04:46 Est GFR (Non-Af Amer) TNP 03/16/17 04:46 BUN/Creatinine Ratio 43.9 03/16/17 04:46 Glucose 381 mg/dL (70-105) H 03/16/17 04:46 POC Glucose 378 MG/DL (70 - 105) H 03/16/17 16:58 Whole Bld Lactic Acid 6.02 mmol/L (0.60-1.99) H* 03/16/17 06:50 Calcium 8.5 mg/dL (8.6-10.3) L 03/16/17 04:46 Phosphorus 3.1 mg/dL (2.5-5.0) 03/16/17 04:46 Total Bilirubin 0.4 mg/dL (0.3-1.0) 03/16/17 04:46 AST 33 U/L (13-39) 03/16/17 04:46 ALT 27 U/L (7-52) 03/16/17 04:46 Alkaline Phosphatase 94 U/L (34-104) 03/16/17 04:46 Total Protein 6.9 gm/dL (6.0-8.3) 03/16/17 04:46 Albumin 3.3 gm/dL (3.7-5.3) L 03/16/17 04:46 Globulin 3.6 gm/dL 03/16/17 04:46 Albumin/Globulin Ratio 0.9 (1.0-1.8) L 03/16/17 04:46 Urine Source CATH 03/15/17 22:00 Urine Color YELLOW 03/15/17 22:00 Urine Clarity HAZY (CLEAR) 03/15/17 22:00 Urine pH 5.5 03/15/17 22:00 Ur Specific [place] 1.025 (1.005-1.030) 03/15/17 22:00 Urine Protein >300 mg/dL (NEGATIVE) H 03/15/17 22:00 Urine Glucose (UA) NEGATIVE mg/dL (NEGATIVE) 03/15/17 22:00 Urine Ketones TRACE mg/dL (NEGATIVE) 03/15/17 22:00 Urine Blood MODERATE (NEGATIVE) H 03/15/17 22:00 Urine Nitrate NEGATIVE (NEGATIVE) 03/15/17 22:00 Urine Bilirubin NEGATIVE (NEGATIVE) 03/15/17 22:00 Urine Urobilinogen 0.2 E.U./dL (0.2 - 1.0) 03/15/17 22:00 Ur Leukocyte Esterase TRACE (NEGATIVE) H 03/15/17 22:00 Urine RBC 2-5 /hpf (0-5) 03/15/17 22:00 Urine WBC 6-10 /hpf (0-5) H 03/15/17 22:00 Ur Epithelial Cells FEW /lpf (FEW) 03/15/17 22:00 Amorphous Sediment MODERATE URATES (NONE SEEN) 03/15/17 22:00 Urine Bacteria MANY /hpf (NONE SEEN) 03/15/17 22:00 - Physical Exam Vitals and I&O: Vital Signs Temp 98.9 F 03/16/17 12:00 Pulse 91 03/16/17 15:00 Resp 24 03/16/17 15:00 BP 124/63 03/16/17 15:00 Pulse Ox 97 03/16/17 15:00 Intake & Output 03/15/17 03/16/17 03/16/17 18:59 06:59 18:59 Intake Total 1000 50 Output Total 300 Balance 700 50 Weight (lbs) 47.174 kg Intake: Intake, IV Amount 1000 50 D5-0.45NS 1,000 ml @ 100 1000 mls/hr IV .Q10H JAMES Rx#: [id number] Piperacillin Sodium/ 50 Tazobact 2.25 gm In Sodium Chloride 0.9% 50 ml @ 100 mls/hr IV Q8H JAMES Rx#:[id number] Oral 0 Output: Urine 300 Other: # Bowel Movements 0 Active Medications: Current Medications Acetaminophen (Tylenol 650mg Supp) 650 mg RC Q4H PRN PRN Reason: Fever >101 Stop: 05/14/17 19:12 Diphenhydramine HCl (Benadryl 50 Mg/Ml) 25 mg IM Q6HR PRN PRN Reason: Anxiety Stop: 05/15/17 11:11 Haloperidol Lactate (Haldol) 2 mg IM Q6HR PRN PRN Reason: Agitation Stop: 05/15/17 11:13 Potassium Chloride/Dextrose (D5w W/20 Meq Kcl) 1,000 mls @ 100 mls/hr IV .Q10H JAMES Stop: 05/15/17 08:01 Last Admin: 03/16/17 09:34 Dose: 100 mls/hr Piperacillin Sod/Tazobactam (Sod 2.25 gm/ Sodium Chloride) 50 mls @ 100 mls/hr IV Q8H JAMES Stop: 05/15/17 08:59 Last Admin: 03/16/17 17:01 Dose: 100 mls/hr Insulin Aspart (Novolog Insulin Sliding Scale) 0 units SUBQ ACHS JAMES PRN Reason: Protocol Stop: 05/14/17 20:59 Last Admin: 03/16/17 17:01 Dose: 8 units Miscellaneous (Zosyn Iv Per Pharmacy) 1 ea MC PRN PRN PRN Reason: RENAL DOSE ZOSYN Stop: 05/15/17 08:23 Ondansetron HCl (Zofran) 4 mg IV Q6H PRN PRN Reason: Nausea / Vomiting Stop: 05/14/17 19:13 General: No acute distress Cardiovascular: Regular rate Lungs: Clear to auscultation Abdomen: Soft, no Tender Assessment/Plan - Assessment Assessment: Lethargy Dehydration Acute kindney injury Sepsis unclear source Advance dementia with behavior problems Mental health disorder DM II HTN Constipation Hypernatremia Dysphagia - Plan Plan: Patient better D5 W IV Fluids IV Rocehine started Follow up on culture Chest xray no acute findings Case discussed with Psych. Follow up labs in am Accucheck and ISS coverage Dysphagia diet started Renal US and CT abd no acute significant findings noted except severe constipation. Fleet enema ordered PT/OT/ST eval Follow up labs in am Daughter was updated on pt's condition and treatment plan .She understood well Daughter verbalized pt is DNR code status Plan of care discussed with nursing staff Nutritional Asmnt/Malnutr-PDOC - Dietary Evaluation Malnutrition Findings (Please click <Entered> for more info): Nutritional Asmnt/Malnutrition Start: 03/16/17 16: 08 Text: Status: Complete Freq: Document 03/16/17 16:08 GSUN (Rec: 03/16/17 16:27 GSUN [email or web address]) Nutritional Asmnt/Malnutrition Patient General Information Nutritional Screening High Risk Screening Diagnosis Lethargy, dehydration, TATI, sepsis unclear source Pertinent Medical Hx/Surgical Hx HTN, dementia, mental health disorder, DM Subjective Information 87 year old female, pt transfered from [facility]. Pt was awake, mittens on, smiled. Spoke to daughter at bedside. Pt's diet order was pureed [id number] at [facility], avg 75% of meals meeting nutritional needs for >1wk until recent few days became lethargic with poor PO, then pt was transfered to ICU. Pt has been NPO since adm, swallow eval pending. Explained to daughter diet texture per ST. Pt is overall thin, unable to complete physical assessment as blanket pulled up to neck. Current Diet Order/ Nutrition Support NPO Pertinent Medications Haldol, Novolog, Zofran, D5w Pertinent Labs 03/16: potassium 3.1L, BUN 79H, creaitnine 1.8H, glucose 381H Nutritional Hx/Data Height 1.57 m Height (Calculated Centimeters) 157.5 Current Weight (lbs) 47.174 kg Weight (Calculated Kilograms) 47.2 Weight (Calculated Grams) 08333.6 [place] Body Weight 110 Weight Status Approriate GI Symptoms Food Allergies No Cultural/Ethnic/Anabaptism Belief Pt likes mashed potatoes, cranberry juice. Skin Integrity/Comment: Toni 13. Right buttock discoloration. Estimated Nutritional Goals Calories/Kcals/Kg IBW 110lb/50kg Kcals Calculated 1500-1750kcal (30-35kcal/kg) Protein Calculated 60-75g (1.2-1.5g/kg, renal vs. sepsis) Fluid: ml 1500-1750ml (1ml/kcal) Nutritional Problem 2. Problem Problem Altered nutrition related laboratory values related to Etiology DM aeb Signs/Symptoms: glucose 173H 381H, pt is on insulin 1. Problem Problem (possible) difficulty swallowing related to Etiology unknown etiology aeb Signs/Symptoms: pt has been kept NPO, swallow eval pending Intervention/Recommendation Comments 1. Diet texture per ST. Recommend diet [id number] low sodium with Boost Glucose Control BID. Expected Outcomes/Goals Expected Outcomes/Goals 1. PO intake to meet at least 75% fo estimated nutritional needs.
--- NOTE | 2017-03-16 22:08 | Infectious Disease Prog Note ---
Infectious Disease Subjective - Review of Systems Service Date: 03/16/17 Subjective: There is no new change, no fever. Lactic acid went high so ceftriaxone was changed to zosyn. Infectious Disease Objective - Results Result Diagrams: 03/16/17 04:46 03/16/17 04:46 Recent Labs: Laboratory Last Values WBC 13.0 Th/cmm (4.8-10.8) H D 03/16/17 04:46 RBC 4.29 Mil/cmm (3.80-5.20) 03/16/17 04:46 Hgb 12.1 gm/dL (11.7-16.1) 03/16/17 04:46 Hct 38.1 % (35.0-45.0) 03/16/17 04:46 MCV 88.8 fl (81-100) 03/16/17 04:46 MCH 28.2 pg (27.0-31.0) 03/16/17 04:46 MCHC Differential 31.8 pg (28.0-36.0) 03/16/17 04:46 RDW 15.2 % (11.5-20.0) 03/16/17 04:46 Plt Count 224 Th/cmm (150-400) 03/16/17 04:46 MPV 10.1 fl 03/16/17 04:46 Neutrophils % 69.1 % (40.0-80.0) 03/16/17 04:46 Lymphocytes % 23.4 % (20.0-50.0) 03/16/17 04:46 Monocytes % 7.0 % (2.0-10.0) 03/16/17 04:46 Eosinophils % 0.3 % (0.0-5.0) 03/16/17 04:46 Basophils % 0.2 % (0.0-2.0) 03/16/17 04:46 Sodium 157 mEq/L (136-145) H 03/16/17 04:46 Potassium 3.1 mEq/L (3.5-5.1) L 03/16/17 04:46 Chloride 125 mEq/L (98-107) H 03/16/17 04:46 Carbon Dioxide 23.7 mEq/L (21.0-31.0) 03/16/17 04:46 Anion Gap 11.4 (7.0-16.0) 03/16/17 04:46 BUN 79 mg/dL (7-25) H 03/16/17 04:46 Creatinine 1.8 mg/dL (0.6-1.2) H 03/16/17 04:46 Est GFR ( Amer) TNP 03/16/17 04:46 Est GFR (Non-Af Amer) TNP 03/16/17 04:46 BUN/Creatinine Ratio 43.9 03/16/17 04:46 Glucose 381 mg/dL (70-105) H 03/16/17 04:46 POC Glucose 378 MG/DL (70 - 105) H 03/16/17 16:58 Whole Bld Lactic Acid 6.02 mmol/L (0.60-1.99) H* 03/16/17 06:50 Calcium 8.5 mg/dL (8.6-10.3) L 03/16/17 04:46 Phosphorus 3.1 mg/dL (2.5-5.0) 03/16/17 04:46 Total Bilirubin 0.4 mg/dL (0.3-1.0) 03/16/17 04:46 AST 33 U/L (13-39) 03/16/17 04:46 ALT 27 U/L (7-52) 03/16/17 04:46 Alkaline Phosphatase 94 U/L (34-104) 03/16/17 04:46 Total Protein 6.9 gm/dL (6.0-8.3) 03/16/17 04:46 Albumin 3.3 gm/dL (3.7-5.3) L 03/16/17 04:46 Globulin 3.6 gm/dL 03/16/17 04:46 Albumin/Globulin Ratio 0.9 (1.0-1.8) L 03/16/17 04:46 Urine Source CATH 03/15/17 22:00 Urine Color YELLOW 03/15/17 22:00 Urine Clarity HAZY (CLEAR) 03/15/17 22:00 Urine pH 5.5 03/15/17 22:00 Ur Specific [place] 1.025 (1.005-1.030) 03/15/17 22:00 Urine Protein >300 mg/dL (NEGATIVE) H 03/15/17 22:00 Urine Glucose (UA) NEGATIVE mg/dL (NEGATIVE) 03/15/17 22:00 Urine Ketones TRACE mg/dL (NEGATIVE) 03/15/17 22:00 Urine Blood MODERATE (NEGATIVE) H 03/15/17 22:00 Urine Nitrate NEGATIVE (NEGATIVE) 03/15/17 22:00 Urine Bilirubin NEGATIVE (NEGATIVE) 03/15/17 22:00 Urine Urobilinogen 0.2 E.U./dL (0.2 - 1.0) 03/15/17 22:00 Ur Leukocyte Esterase TRACE (NEGATIVE) H 03/15/17 22:00 Urine RBC 2-5 /hpf (0-5) 03/15/17 22:00 Urine WBC 6-10 /hpf (0-5) H 03/15/17 22:00 Ur Epithelial Cells FEW /lpf (FEW) 03/15/17 22:00 Amorphous Sediment MODERATE URATES (NONE SEEN) 03/15/17 22:00 Urine Bacteria MANY /hpf (NONE SEEN) 03/15/17 22:00 - Physical Exam Vitals and I&O: Vital Signs Temp 96.9 F 03/16/17 20:00 Pulse 93 03/16/17 20:00 Resp 18 03/16/17 20:00 BP 107/55 03/16/17 20:00 Pulse Ox 90 03/16/17 20:00 Intake & Output 03/16/17 03/16/17 03/17/17 06:59 18:59 06:59 Intake Total 1000 50 Output Total 300 Balance 700 50 Weight (lbs) 47.174 kg Intake: Intake, IV Amount 1000 50 D5-0.45NS 1,000 ml @ 100 1000 mls/hr IV .Q10H JAMES Rx#: [id number] Piperacillin Sodium/ 50 Tazobact 2.25 gm In Sodium Chloride 0.9% 50 ml @ 100 mls/hr IV Q8H JAMES Rx#:[id number] Oral 0 Output: Urine 300 Other: # Bowel Movements 0 Active Medications: Current Medications Acetaminophen (Tylenol 650mg Supp) 650 mg RC Q4H PRN PRN Reason: Fever >101 Stop: 05/14/17 19:12 Diphenhydramine HCl (Benadryl 50 Mg/Ml) 25 mg IM Q6HR PRN PRN Reason: Anxiety Stop: 05/15/17 11:11 Haloperidol Lactate (Haldol) 2 mg IM Q6HR PRN PRN Reason: Agitation Stop: 05/15/17 11:13 Potassium Chloride/Dextrose (D5w W/20 Meq Kcl) 1,000 mls @ 100 mls/hr IV .Q10H JAMES Stop: 05/15/17 08:01 Last Admin: 03/16/17 09:34 Dose: 100 mls/hr Piperacillin Sod/Tazobactam (Sod 2.25 gm/ Sodium Chloride) 50 mls @ 100 mls/hr IV Q8H JAMES Stop: 05/15/17 08:59 Last Admin: 03/16/17 17:01 Dose: 100 mls/hr Insulin Aspart (Novolog Insulin Sliding Scale) 0 units SUBQ ACHS JAMES PRN Reason: Protocol Stop: 05/14/17 20:59 Last Admin: 03/16/17 17:01 Dose: 8 units Miscellaneous (Zosyn Iv Per Pharmacy) 1 ea MC PRN PRN PRN Reason: RENAL DOSE ZOSYN Stop: 05/15/17 08:23 Ondansetron HCl (Zofran) 4 mg IV Q6H PRN PRN Reason: Nausea / Vomiting Stop: 05/14/17 19:13 General: no acute distress, well developed, well nourished HEENT: atraumatic, normocephalic Neck: supple, no thyromegaly Cardiovascular: S1S2, regular Lungs: no clear to auscultation bilaterally, no clear to percussion Abdomen: soft, bowel sounds, no tender, no distended Extremities: no cyanosis, no clubbing, no edema Neurological: awake, alert, other (combative.) Infectious Disease Assmt/Plan - Assessment Assessment: 1. Leukocytosis with fever, sepsis. 2/2 UTI. 2. Acute kidney injury. 3. Psychosis. 4. Hypertension. 5. Diabetes mellitus type II. 6. Lactic acidemia, suspect sepsis. 7. UTI. Plan: Cchange rocephin to zosyn. Check lactic acid. Check sepsis workup. Nutritional Asmnt/Malnutr-PDOC - Dietary Evaluation Malnutrition Findings (Please click <Entered> for more info): Nutritional Asmnt/Malnutrition Start: 03/16/17 16: 08 Text: Status: Complete Freq: Document 03/16/17 16:08 GSUN (Rec: 03/16/17 16:27 [email or web address] [email or web address]) Nutritional Asmnt/Malnutrition Patient General Information Nutritional Screening High Risk Screening Diagnosis Lethargy, dehydration, TATI, sepsis unclear source Pertinent Medical Hx/Surgical Hx HTN, dementia, mental health disorder, DM Subjective Information 87 year old female, pt transfered from [facility]. Pt was awake, mittens on, smiled. Spoke to daughter at bedside. Pt's diet order was pureed [id number] at [facility], avg 75% of meals meeting nutritional needs for >1wk until recent few days became lethargic with poor PO, then pt was transfered to ICU. Pt has been NPO since adm, swallow eval pending. Explained to daughter diet texture per ST. Pt is overall thin, unable to complete physical assessment as blanket pulled up to neck. Current Diet Order/ Nutrition Support NPO Pertinent Medications Haldol, Novolog, Zofran, D5w Pertinent Labs 03/16: potassium 3.1L, BUN 79H, creaitnine 1.8H, glucose 381H Nutritional Hx/Data Height 1.57 m Height (Calculated Centimeters) 157.5 Current Weight (lbs) 47.174 kg Weight (Calculated Kilograms) 47.2 Weight (Calculated Grams) 64428.6 [place] Body Weight 110 Weight Status Approriate GI Symptoms Food Allergies No Cultural/Ethnic/Islam Belief Pt likes mashed potatoes, cranberry juice. Skin Integrity/Comment: Toni 13. Right buttock discoloration. Estimated Nutritional Goals Calories/Kcals/Kg IBW 110lb/50kg Kcals Calculated 1500-1750kcal (30-35kcal/kg) Protein Calculated 60-75g (1.2-1.5g/kg, renal vs. sepsis) Fluid: ml 1500-1750ml (1ml/kcal) Nutritional Problem 2. Problem Problem Altered nutrition related laboratory values related to Etiology DM aeb Signs/Symptoms: glucose 173H 381H, pt is on insulin 1. Problem Problem (possible) difficulty swallowing related to Etiology unknown etiology aeb Signs/Symptoms: pt has been kept NPO, swallow eval pending Intervention/Recommendation Comments 1. Diet texture per ST. Recommend diet [id number] low sodium with Boost Glucose Control BID. Expected Outcomes/Goals Expected Outcomes/Goals 1. PO intake to meet at least 75% fo estimated nutritional needs.
[2017-03-17] MEDS: D5W w/20 mEq KCL 1,000 ML IV SCH (00:36)
[2017-03-17] MEDS: Piperacillin/Tazobact 2.25 gm in 0.9% NS 50 ML IV SCH ×3 (00:38→16:36)
[2017-03-17] MEDS: INSULIN ASPART SLIDING SCALE 100 UNITS/ML UNIT SUBQ SCH ×4 (06:43→21:46)
[2017-03-17 07:23] LABS: ANION GAP 9.8 (7.0-16.0); BUN - UREA NITROGEN 52 mg/dL (7-25); BUN/CREATININE RATIO 37.1; CALCIUM SERUM 8.1 mg/dL (8.6-10.3); CARBON DIOXIDE 23.2 mEq/L (21.0-31.0); CHLORIDE 123 mEq/L (98-107); CREATININE - SERUM 1.4 mg/dL (0.6-1.2); GLUCOSE 361 mg/dL (70-105); PHOSPHOROUS 4.8 mg/dL (2.5-5.0); SODIUM SERUM 153 mEq/L (136-145)
[2017-03-17 07:34] LABS: % BASOPHILS 0.1 % (0.0-2.0); % EOSINOPHILS 0.3 % (0.0-5.0); % MONOCYTES 4.2 % (2.0-10.0); % NEUTROPHILS 78.4 % (40.0-80.0); HEMATOCRIT 33.9 % (35.0-45.0); HEMOGLOBIN 10.9 gm/dL (11.7-16.1); MEAN CORPUSCULAR HEMOGLOBIN 28.3 pg (27.0-31.0); MEAN CORPUSCULAR HGB CONC 32.1 pg (28.0-36.0); MEAN PLATELET VOLUME 10.3 fl; PLATELET COUNT 182 Th/cmm (150-400); RED BLOOD COUNT 3.85 Mil/cmm (3.80-5.20); RED CELL DISTRIBUTION WIDTH 14.8 % (11.5-20.0); WHITE BLOOD COUNT 11.4 Th/cmm (4.8-10.8)
[2017-03-17] MEDS: Haloperidol Lactate 5 mg/mL 1mL Vial IM PRN (10:37)
[2017-03-17] MEDS ORDERED: Potassium Chloride Elixir 20 mEq /15 mL UDC PO ONE (15:43)
--- NOTE | 2017-03-17 16:07 | General Progress Note ---
Subjective - Review of Systems Service Date: 03/17/17 Subjective: Patient seems more awake calm nurse was at the bedside. Noticed pt coughs with thin liquids Objective - Results Result Diagrams: 03/17/17 06:19 03/17/17 06:19 Recent Labs: Laboratory Last Values WBC 11.4 Th/cmm (4.8-10.8) H 03/17/17 06:19 RBC 3.85 Mil/cmm (3.80-5.20) 03/17/17 06:19 Hgb 10.9 gm/dL (11.7-16.1) L 03/17/17 06:19 Hct 33.9 % (35.0-45.0) L D 03/17/17 06:19 MCV 88.0 fl (81-100) 03/17/17 06:19 MCH 28.3 pg (27.0-31.0) 03/17/17 06:19 MCHC Differential 32.1 pg (28.0-36.0) 03/17/17 06:19 RDW 14.8 % (11.5-20.0) 03/17/17 06:19 Plt Count 182 Th/cmm (150-400) 03/17/17 06:19 MPV 10.3 fl 03/17/17 06:19 Neutrophils % 78.4 % (40.0-80.0) 03/17/17 06:19 Lymphocytes % 17.0 % (20.0-50.0) L 03/17/17 06:19 Monocytes % 4.2 % (2.0-10.0) 03/17/17 06:19 Eosinophils % 0.3 % (0.0-5.0) 03/17/17 06:19 Basophils % 0.1 % (0.0-2.0) 03/17/17 06:19 Sodium 153 mEq/L (136-145) H 03/17/17 06:19 Potassium 3.0 mEq/L (3.5-5.1) L 03/17/17 06:19 Chloride 123 mEq/L (98-107) H 03/17/17 06:19 Carbon Dioxide 23.2 mEq/L (21.0-31.0) 03/17/17 06:19 Anion Gap 9.8 (7.0-16.0) 03/17/17 06:19 BUN 52 mg/dL (7-25) H 03/17/17 06:19 Creatinine 1.4 mg/dL (0.6-1.2) H 03/17/17 06:19 Est GFR ( Amer) TNP 03/17/17 06:19 Est GFR (Non-Af Amer) TNP 03/17/17 06:19 BUN/Creatinine Ratio 37.1 03/17/17 06:19 Glucose 361 mg/dL (70-105) H 03/17/17 06:19 POC Glucose 330 MG/DL (70 - 105) H 03/17/17 11:33 Whole Bld Lactic Acid 1.91 mmol/L (0.60-1.99) 03/17/17 06:19 Calcium 8.1 mg/dL (8.6-10.3) L 03/17/17 06:19 Phosphorus 4.8 mg/dL (2.5-5.0) 03/17/17 06:19 Total Bilirubin 0.4 mg/dL (0.3-1.0) 03/16/17 04:46 AST 33 U/L (13-39) 03/16/17 04:46 ALT 27 U/L (7-52) 03/16/17 04:46 Alkaline Phosphatase 94 U/L (34-104) 03/16/17 04:46 Total Protein 6.9 gm/dL (6.0-8.3) 03/16/17 04:46 Albumin 3.3 gm/dL (3.7-5.3) L 03/16/17 04:46 Globulin 3.6 gm/dL 03/16/17 04:46 Albumin/Globulin Ratio 0.9 (1.0-1.8) L 03/16/17 04:46 Urine Source CATH 03/15/17 22:00 Urine Color YELLOW 03/15/17 22:00 Urine Clarity HAZY (CLEAR) 03/15/17 22:00 Urine pH 5.5 03/15/17 22:00 Ur Specific [place] 1.025 (1.005-1.030) 03/15/17 22:00 Urine Protein >300 mg/dL (NEGATIVE) H 03/15/17 22:00 Urine Glucose (UA) NEGATIVE mg/dL (NEGATIVE) 03/15/17 22:00 Urine Ketones TRACE mg/dL (NEGATIVE) 03/15/17 22:00 Urine Blood MODERATE (NEGATIVE) H 03/15/17 22:00 Urine Nitrate NEGATIVE (NEGATIVE) 03/15/17 22:00 Urine Bilirubin NEGATIVE (NEGATIVE) 03/15/17 22:00 Urine Urobilinogen 0.2 E.U./dL (0.2 - 1.0) 03/15/17 22:00 Ur Leukocyte Esterase TRACE (NEGATIVE) H 03/15/17 22:00 Urine RBC 2-5 /hpf (0-5) 03/15/17 22:00 Urine WBC 6-10 /hpf (0-5) H 03/15/17 22:00 Ur Epithelial Cells FEW /lpf (FEW) 03/15/17 22:00 Amorphous Sediment MODERATE URATES (NONE SEEN) 03/15/17 22:00 Urine Bacteria MANY /hpf (NONE SEEN) 03/15/17 22:00 - Physical Exam Vitals and I&O: Vital Signs Temp 97.8 F 03/17/17 04:00 Pulse 99 03/17/17 04:00 Resp 18 03/17/17 04:00 BP 119/68 03/17/17 04:00 Pulse Ox 83 03/17/17 04:00 Intake & Output 03/16/17 03/17/17 03/17/17 18:59 06:59 18:59 Intake Total 100 1480 Output Total 350 Balance 100 1130 Weight (lbs) 52.072 kg Intake: Intake, IV Amount 100 1050 D5W w/20 mEq KCL 1,000 ml 1000 @ 100 mls/hr IV .Q10H JAMES Rx#:[id number] Piperacillin Sodium/ 100 50 Tazobact 2.25 gm In Sodium Chloride 0.9% 50 ml @ 100 mls/hr IV Q8H JAMES Rx#:[id number] Oral 430 Output: Urine 350 Other: # Bowel Movements 0 Active Medications: Current Medications Acetaminophen (Tylenol 650mg Supp) 650 mg RC Q4H PRN PRN Reason: Fever >101 Stop: 05/14/17 19:12 Diphenhydramine HCl (Benadryl 50 Mg/Ml) 25 mg IM Q6HR PRN PRN Reason: Anxiety Stop: 05/15/17 11:11 Last Admin: 03/17/17 02:40 Dose: 25 mg Haloperidol Lactate (Haldol) 2 mg IM Q6HR PRN PRN Reason: Agitation Stop: 05/15/17 11:13 Last Admin: 03/17/17 10:37 Dose: 2 mg Piperacillin Sod/Tazobactam (Sod 2.25 gm/ Sodium Chloride) 50 mls @ 100 mls/hr IV Q8H [facility] Stop: 05/15/17 08:59 Last Admin: 03/17/17 11:04 Dose: 100 mls/hr Potassium Chloride 30 meq/ (Dextrose) 1,015 mls @ 75 mls/hr IV .[id number] [facility] Stop: 05/16/17 11:53 Last Admin: 03/17/17 12:43 Dose: 75 mls/hr Insulin Aspart (Novolog Insulin Sliding Scale) 0 units SUBQ ACHS JAMES PRN Reason: Protocol Stop: 05/14/17 20:59 Last Admin: 03/17/17 12:17 Dose: 6 units Miscellaneous (Zosyn Iv Per Pharmacy) 1 ea MC PRN PRN PRN Reason: RENAL DOSE ZOSYN Stop: 05/15/17 08:23 Ondansetron HCl (Zofran) 4 mg IV Q6H PRN PRN Reason: Nausea / Vomiting Stop: 05/14/17 19:13 General: No acute distress Cardiovascular: Regular rate Lungs: Clear to auscultation Abdomen: Soft, no Tender Assessment/Plan - Assessment Assessment: Lethargy improving Dehydration improving Acute kindney injury improving Sepsis unclear source better Advance dementia with behavior problems Mental health disorder DM II HTN Constipation Hypernatremia Dysphagia Hypokalemia - Plan Plan: Patient better D5 W IV Fluids with KCL Oral K supplement ordered IV Rocehine started Follow up on culture Chest xray no acute findings Follow up labs in am Accucheck and ISS coverage Dysphagia diet started PT/OT/ST eval Plan of care discussed with nursing staff Nutritional Asmnt/Malnutr-PDOC - Dietary Evaluation Malnutrition Findings (Please click <Entered> for more info): Nutritional Asmnt/Malnutrition Start: 03/16/17 16: 08 Text: Status: Complete Freq: Document 03/16/17 16:08 GSUN (Rec: 03/16/17 16:27 [email or web address]) Nutritional Asmnt/Malnutrition Patient General Information Nutritional Screening High Risk Screening Diagnosis Lethargy, dehydration, TATI, sepsis unclear source Pertinent Medical Hx/Surgical Hx HTN, dementia, mental health disorder, DM Subjective Information 87 year old female, pt transfered from [facility]. Pt was awake, mittens on, smiled. Spoke to daughter at bedside. Pt's diet order was pureed [id number] at [facility], avg 75% of meals meeting nutritional needs for >1wk until recent few days became lethargic with poor PO, then pt was transfered to ICU. Pt has been NPO since adm, swallow eval pending. Explained to daughter diet texture per ST. Pt is overall thin, unable to complete physical assessment as blanket pulled up to neck. Current Diet Order/ Nutrition Support NPO Pertinent Medications Haldol, Novolog, Zofran, D5w Pertinent Labs 03/16: potassium 3.1L, BUN 79H, creaitnine 1.8H, glucose 381H Nutritional Hx/Data Height 1.57 m Height (Calculated Centimeters) 157.5 Current Weight (lbs) 47.174 kg Weight (Calculated Kilograms) 47.2 Weight (Calculated Grams) 29702.6 [place] Body Weight 110 Weight Status Approriate GI Symptoms Food Allergies No Cultural/Ethnic/Yarsanism Belief Pt likes mashed potatoes, cranberry juice. Skin Integrity/Comment: Toni 13. Right buttock discoloration. Estimated Nutritional Goals Calories/Kcals/Kg IBW 110lb/50kg Kcals Calculated 1500-1750kcal (30-35kcal/kg) Protein Calculated 60-75g (1.2-1.5g/kg, renal vs. sepsis) Fluid: ml 1500-1750ml (1ml/kcal) Nutritional Problem 2. Problem Problem Altered nutrition related laboratory values related to Etiology DM aeb Signs/Symptoms: glucose 173H 381H, pt is on insulin 1. Problem Problem (possible) difficulty swallowing related to Etiology unknown etiology aeb Signs/Symptoms: pt has been kept NPO, swallow eval pending Intervention/Recommendation Comments 1. Diet texture per ST. Recommend diet [id number] low sodium with Boost Glucose Control BID. Expected Outcomes/Goals Expected Outcomes/Goals 1. PO intake to meet at least 75% fo estimated nutritional needs.
--- NOTE | 2017-03-18 00:02 | Infectious Disease Prog Note ---
Infectious Disease Subjective - Review of Systems Service Date: 03/17/17 Subjective: There is no new change, no fever. Lactic acid went high so ceftriaxone was changed to zosyn. Infectious Disease Objective - Results Result Diagrams: 03/18/17 05:05 03/18/17 05:05 Recent Labs: Laboratory Last Values WBC 11.4 Th/cmm (4.8-10.8) H 03/17/17 06:19 RBC 3.85 Mil/cmm (3.80-5.20) 03/17/17 06:19 Hgb 10.9 gm/dL (11.7-16.1) L 03/17/17 06:19 Hct 33.9 % (35.0-45.0) L D 03/17/17 06:19 MCV 88.0 fl (81-100) 03/17/17 06:19 MCH 28.3 pg (27.0-31.0) 03/17/17 06:19 MCHC Differential 32.1 pg (28.0-36.0) 03/17/17 06:19 RDW 14.8 % (11.5-20.0) 03/17/17 06:19 Plt Count 182 Th/cmm (150-400) 03/17/17 06:19 MPV 10.3 fl 03/17/17 06:19 Neutrophils % 78.4 % (40.0-80.0) 03/17/17 06:19 Lymphocytes % 17.0 % (20.0-50.0) L 03/17/17 06:19 Monocytes % 4.2 % (2.0-10.0) 03/17/17 06:19 Eosinophils % 0.3 % (0.0-5.0) 03/17/17 06:19 Basophils % 0.1 % (0.0-2.0) 03/17/17 06:19 Sodium 153 mEq/L (136-145) H 03/17/17 06:19 Potassium 3.0 mEq/L (3.5-5.1) L 03/17/17 06:19 Chloride 123 mEq/L (98-107) H 03/17/17 06:19 Carbon Dioxide 23.2 mEq/L (21.0-31.0) 03/17/17 06:19 Anion Gap 9.8 (7.0-16.0) 03/17/17 06:19 BUN 52 mg/dL (7-25) H 03/17/17 06:19 Creatinine 1.4 mg/dL (0.6-1.2) H 03/17/17 06:19 Est GFR ( Amer) TNP 03/17/17 06:19 Est GFR (Non-Af Amer) TNP 03/17/17 06:19 BUN/Creatinine Ratio 37.1 03/17/17 06:19 Glucose 361 mg/dL (70-105) H 03/17/17 06:19 POC Glucose 412 MG/DL (70 - 105) H 03/17/17 21:21 Whole Bld Lactic Acid 1.91 mmol/L (0.60-1.99) 03/17/17 06:19 Calcium 8.1 mg/dL (8.6-10.3) L 03/17/17 06:19 Phosphorus 4.8 mg/dL (2.5-5.0) 03/17/17 06:19 Total Bilirubin 0.4 mg/dL (0.3-1.0) 03/16/17 04:46 AST 33 U/L (13-39) 03/16/17 04:46 ALT 27 U/L (7-52) 03/16/17 04:46 Alkaline Phosphatase 94 U/L (34-104) 03/16/17 04:46 Total Protein 6.9 gm/dL (6.0-8.3) 03/16/17 04:46 Albumin 3.3 gm/dL (3.7-5.3) L 03/16/17 04:46 Globulin 3.6 gm/dL 03/16/17 04:46 Albumin/Globulin Ratio 0.9 (1.0-1.8) L 03/16/17 04:46 Urine Source CATH 03/15/17 22:00 Urine Color YELLOW 03/15/17 22:00 Urine Clarity HAZY (CLEAR) 03/15/17 22:00 Urine pH 5.5 03/15/17 22:00 Ur Specific [place] 1.025 (1.005-1.030) 03/15/17 22:00 Urine Protein >300 mg/dL (NEGATIVE) H 03/15/17 22:00 Urine Glucose (UA) NEGATIVE mg/dL (NEGATIVE) 03/15/17 22:00 Urine Ketones TRACE mg/dL (NEGATIVE) 03/15/17 22:00 Urine Blood MODERATE (NEGATIVE) H 03/15/17 22:00 Urine Nitrate NEGATIVE (NEGATIVE) 03/15/17 22:00 Urine Bilirubin NEGATIVE (NEGATIVE) 03/15/17 22:00 Urine Urobilinogen 0.2 E.U./dL (0.2 - 1.0) 03/15/17 22:00 Ur Leukocyte Esterase TRACE (NEGATIVE) H 03/15/17 22:00 Urine RBC 2-5 /hpf (0-5) 03/15/17 22:00 Urine WBC 6-10 /hpf (0-5) H 03/15/17 22:00 Ur Epithelial Cells FEW /lpf (FEW) 03/15/17 22:00 Amorphous Sediment MODERATE URATES (NONE SEEN) 03/15/17 22:00 Urine Bacteria MANY /hpf (NONE SEEN) 03/15/17 22:00 - Physical Exam Vitals and I&O: Vital Signs Temp 98.2 F 03/17/17 20:00 Pulse 86 03/17/17 20:00 Resp 18 03/17/17 20:00 BP 116/51 03/17/17 20:00 Pulse Ox 98 03/17/17 20:00 Intake & Output 03/17/17 03/17/17 03/18/17 06:59 18:59 06:59 Intake Total 1480 400 Output Total 350 450 Balance 1130 -50 Weight (lbs) 52.072 kg 51.71 kg Intake: Intake, IV Amount 1050 50 D5W w/20 mEq KCL 1,000 ml 1000 @ 100 mls/hr IV .Q10H JAMES Rx#:[id number] Piperacillin Sodium/ 50 50 Tazobact 2.25 gm In Sodium Chloride 0.9% 50 ml @ 100 mls/hr IV Q8H JAMES Rx#:[id number] Oral 430 350 Output: Urine 350 450 Other: # Bowel Movements 0 2 Active Medications: Current Medications Acetaminophen (Tylenol 650mg Supp) 650 mg RC Q4H PRN PRN Reason: Fever >101 Stop: 05/14/17 19:12 Diphenhydramine HCl (Benadryl 50 Mg/Ml) 25 mg IM Q6HR PRN PRN Reason: Anxiety Stop: 05/15/17 11:11 Last Admin: 03/17/17 20:18 Dose: 25 mg Haloperidol Lactate (Haldol) 2 mg IM Q6HR PRN PRN Reason: Agitation Stop: 05/15/17 11:13 Last Admin: 03/17/17 10:37 Dose: 2 mg Piperacillin Sod/Tazobactam (Sod 2.25 gm/ Sodium Chloride) 50 mls @ 100 mls/hr IV Q8H [facility] Stop: 05/15/17 08:59 Last Admin: 03/17/17 16:36 Dose: 100 mls/hr Potassium Chloride 30 meq/ (Dextrose) 1,015 mls @ 75 mls/hr IV .[id number] [facility] Stop: 05/16/17 11:53 Last Admin: 03/17/17 12:43 Dose: 75 mls/hr Insulin Aspart (Novolog Insulin Sliding Scale) 0 units SUBQ ACHS JAMES PRN Reason: Protocol Stop: 05/14/17 20:59 Last Admin: 03/17/17 21:46 Dose: 12 units Miscellaneous (Zosyn Iv Per Pharmacy) 1 ea MC PRN PRN PRN Reason: RENAL DOSE ZOSYN Stop: 05/15/17 08:23 Ondansetron HCl (Zofran) 4 mg IV Q6H PRN PRN Reason: Nausea / Vomiting Stop: 05/14/17 19:13 General: no acute distress, well developed, well nourished HEENT: atraumatic, normocephalic Neck: supple, no thyromegaly, no rigid Cardiovascular: S1S2, regular Lungs: clear to auscultation bilaterally, clear to percussion, crackles Abdomen: soft, no tender, no distended Extremities: no cyanosis, no clubbing Neurological: awake, alert Skin: intact Infectious Disease Assmt/Plan - Assessment Assessment: 1. Leukocytosis with fever, sepsis. 2/2 UTI. 2. Acute kidney injury. 3. Psychosis. 4. Hypertension. 5. Diabetes mellitus type II. 6. Lactic acidemia, improved. 7. UTI. Plan: Continue zosyn. Nutritional Asmnt/Malnutr-PDOC - Dietary Evaluation Malnutrition Findings (Please click <Entered> for more info): Nutritional Asmnt/Malnutrition Start: 03/16/17 16: 08 Text: Status: Complete Freq: Document 03/16/17 16:08 MARIELOS (Rec: 03/16/17 16:27 [email or web address] [email or web address]) Nutritional Asmnt/Malnutrition Patient General Information Nutritional Screening High Risk Screening Diagnosis Lethargy, dehydration, TATI, sepsis unclear source Pertinent Medical Hx/Surgical Hx HTN, dementia, mental health disorder, DM Subjective Information 87 year old female, pt transfered from [facility]. Pt was awake, mittens on, smiled. Spoke to daughter at bedside. Pt's diet order was pureed [id number] at [facility], avg 75% of meals meeting nutritional needs for >1wk until recent few days became lethargic with poor PO, then pt was transfered to ICU. Pt has been NPO since adm, swallow eval pending. Explained to daughter diet texture per ST. Pt is overall thin, unable to complete physical assessment as blanket pulled up to neck. Current Diet Order/ Nutrition Support NPO Pertinent Medications Haldol, Novolog, Zofran, D5w Pertinent Labs 03/16: potassium 3.1L, BUN 79H, creaitnine 1.8H, glucose 381H Nutritional Hx/Data Height 1.57 m Height (Calculated Centimeters) 157.5 Current Weight (lbs) 47.174 kg Weight (Calculated Kilograms) 47.2 Weight (Calculated Grams) 22316.6 [place] Body Weight 110 Weight Status Approriate GI Symptoms Food Allergies No Cultural/Ethnic/[employer] Belief Pt likes mashed potatoes, cranberry juice. Skin Integrity/Comment: Toni 13. Right buttock discoloration. Estimated Nutritional Goals Calories/Kcals/Kg IBW 110lb/50kg Kcals Calculated 1500-1750kcal (30-35kcal/kg) Protein Calculated 60-75g (1.2-1.5g/kg, renal vs. sepsis) Fluid: ml 1500-1750ml (1ml/kcal) Nutritional Problem 2. Problem Problem Altered nutrition related laboratory values related to Etiology DM aeb Signs/Symptoms: glucose 173H 381H, pt is on insulin 1. Problem Problem (possible) difficulty swallowing related to Etiology unknown etiology aeb Signs/Symptoms: pt has been kept NPO, swallow eval pending Intervention/Recommendation Comments 1. Diet texture per ST. Recommend diet [id number] low sodium with Boost Glucose Control BID. Expected Outcomes/Goals Expected Outcomes/Goals 1. PO intake to meet at least 75% fo estimated nutritional needs.
[2017-03-18] MEDS: Piperacillin/Tazobact 2.25 gm in 0.9% NS 50 ML IV SCH ×3 (01:34→17:44)
[2017-03-18 06:13] LABS: % BASOPHILS 0.1 % (0.0-2.0); % EOSINOPHILS 1.9 % (0.0-5.0); % LYMPHOCYTES 28.7 % (20.0-50.0); % MONOCYTES 4.6 % (2.0-10.0); % NEUTROPHILS 64.7 % (40.0-80.0); HEMOGLOBIN 9.3 gm/dL (11.7-16.1); MEAN CORPUSCULAR HEMOGLOBIN 28.5 pg (27.0-31.0); MEAN CORPUSCULAR HGB CONC 32.7 pg (28.0-36.0); MEAN PLATELET VOLUME 11.4 fl; NEUTROPHILE ABSOLUTE 8.5 Th/cmm (1.8-8.0); RED BLOOD COUNT 3.28 Mil/cmm (3.80-5.20); RED CELL DISTRIBUTION WIDTH 14.7 % (11.5-20.0)
[2017-03-18 06:14] LABS: ANION GAP 7.3 (7.0-16.0); BUN - UREA NITROGEN 30 mg/dL (7-25); CARBON DIOXIDE 21.7 mEq/L (21.0-31.0); CHLORIDE 123 mEq/L (98-107); GLUCOSE 152 mg/dL (70-105); SODIUM SERUM 148 mEq/L (136-145)
[2017-03-18 06:24] LABS: HEMATOCRIT 28.5 % (35.0-45.0); PLATELET COUNT 139 Th/cmm (150-400); WHITE BLOOD COUNT 13.2 Th/cmm (4.8-10.8)
[2017-03-18] MEDS: INSULIN ASPART SLIDING SCALE 100 UNITS/ML UNIT SUBQ SCH ×5 (06:59→22:44)
[2017-03-18] MEDS: Haloperidol Lactate 5 mg/mL 1mL Vial IM PRN (11:11)
[2017-03-18] MEDS: Dextrose 5% 1,000 ML IV SCH (14:41)
--- NOTE | 2017-03-18 21:14 | General Progress Note ---
Subjective - Review of Systems Service Date: 03/18/17 Subjective: Patient seems more awake confused no new concern reported Objective - Results Result Diagrams: 03/18/17 05:05 03/18/17 05:05 Recent Labs: Laboratory Last Values WBC 13.2 Th/cmm (4.8-10.8) H 03/18/17 05:05 RBC 3.28 Mil/cmm (3.80-5.20) L 03/18/17 05:05 Hgb 9.3 gm/dL (11.7-16.1) L 03/18/17 05:05 Hct 28.5 % (35.0-45.0) L D 03/18/17 05:05 MCV 87.0 fl (81-100) 03/18/17 05:05 MCH 28.5 pg (27.0-31.0) 03/18/17 05:05 MCHC Differential 32.7 pg (28.0-36.0) 03/18/17 05:05 RDW 14.7 % (11.5-20.0) 03/18/17 05:05 Plt Count 139 Th/cmm (150-400) L D 03/18/17 05:05 MPV 11.4 fl 03/18/17 05:05 Neutrophils % 64.7 % (40.0-80.0) 03/18/17 05:05 Lymphocytes % 28.7 % (20.0-50.0) 03/18/17 05:05 Monocytes % 4.6 % (2.0-10.0) 03/18/17 05:05 Eosinophils % 1.9 % (0.0-5.0) 03/18/17 05:05 Basophils % 0.1 % (0.0-2.0) 03/18/17 05:05 Sodium 148 mEq/L (136-145) H 03/18/17 05:05 Potassium 4.0 mEq/L (3.5-5.1) 03/18/17 05:05 Chloride 123 mEq/L (98-107) H 03/18/17 05:05 Carbon Dioxide 21.7 mEq/L (21.0-31.0) 03/18/17 05:05 Anion Gap 7.3 (7.0-16.0) 03/18/17 05:05 BUN 30 mg/dL (7-25) H 03/18/17 05:05 Creatinine 1.0 mg/dL (0.6-1.2) 03/18/17 05:05 Est GFR ( Amer) TNP 03/18/17 05:05 Est GFR (Non-Af Amer) TNP 03/18/17 05:05 BUN/Creatinine Ratio 30.0 03/18/17 05:05 Glucose 152 mg/dL (70-105) H 03/18/17 05:05 POC Glucose 374 MG/DL (70 - 105) H 03/18/17 16:11 Whole Bld Lactic Acid 1.91 mmol/L (0.60-1.99) 03/17/17 06:19 Calcium 8.0 mg/dL (8.6-10.3) L 03/18/17 05:05 Phosphorus 4.8 mg/dL (2.5-5.0) 03/17/17 06:19 Total Bilirubin 0.4 mg/dL (0.3-1.0) 03/16/17 04:46 AST 33 U/L (13-39) 03/16/17 04:46 ALT 27 U/L (7-52) 03/16/17 04:46 Alkaline Phosphatase 94 U/L (34-104) 03/16/17 04:46 Total Protein 6.9 gm/dL (6.0-8.3) 03/16/17 04:46 Albumin 3.3 gm/dL (3.7-5.3) L 03/16/17 04:46 Globulin 3.6 gm/dL 03/16/17 04:46 Albumin/Globulin Ratio 0.9 (1.0-1.8) L 03/16/17 04:46 Urine Source CATH 03/15/17 22:00 Urine Color YELLOW 03/15/17 22:00 Urine Clarity HAZY (CLEAR) 03/15/17 22:00 Urine pH 5.5 03/15/17 22:00 Ur Specific [place] 1.025 (1.005-1.030) 03/15/17 22:00 Urine Protein >300 mg/dL (NEGATIVE) H 03/15/17 22:00 Urine Glucose (UA) NEGATIVE mg/dL (NEGATIVE) 03/15/17 22:00 Urine Ketones TRACE mg/dL (NEGATIVE) 03/15/17 22:00 Urine Blood MODERATE (NEGATIVE) H 03/15/17 22:00 Urine Nitrate NEGATIVE (NEGATIVE) 03/15/17 22:00 Urine Bilirubin NEGATIVE (NEGATIVE) 03/15/17 22:00 Urine Urobilinogen 0.2 E.U./dL (0.2 - 1.0) 03/15/17 22:00 Ur Leukocyte Esterase TRACE (NEGATIVE) H 03/15/17 22:00 Urine RBC 2-5 /hpf (0-5) 03/15/17 22:00 Urine WBC 6-10 /hpf (0-5) H 03/15/17 22:00 Ur Epithelial Cells FEW /lpf (FEW) 03/15/17 22:00 Amorphous Sediment MODERATE URATES (NONE SEEN) 03/15/17 22:00 Urine Bacteria MANY /hpf (NONE SEEN) 03/15/17 22:00 - Physical Exam Vitals and I&O: Vital Signs Temp 98 F 03/18/17 20:00 Pulse 76 03/18/17 20:00 Resp 18 03/18/17 20:00 BP 127/63 03/18/17 20:00 Pulse Ox 94 03/18/17 20:00 Intake & Output 03/18/17 03/18/17 03/19/17 06:59 18:59 06:59 Intake Total 1065 1050.833 Output Total 300 300 Balance 765 750.833 Weight (lbs) 54.091 kg 53.977 kg Intake: Intake, IV Amount 1065 250.833 Dextrose 5% 1,000 ml @ 50 200.833 mls/hr IV .Q20H [facility] Rx#: [id number] Piperacillin Sodium/ 50 Tazobact 2.25 gm In Sodium Chloride 0.9% 50 ml @ 100 mls/hr IV Q6HR [facility] Rx#:[id number] Piperacillin Sodium/ 50 Tazobact 2.25 gm In Sodium Chloride 0.9% 50 ml @ 100 mls/hr IV Q8H [facility] Rx#:[id number] Potassium Chloride 30 meq 1015 In Dextrose 5% 1,000 ml @ 75 mls/hr IV .[id number] J[facility] Rx#:[id number] Oral 800 Output: Urine 300 300 Other: # Bowel Movements 1 2 Active Medications: Current Medications Acetaminophen (Tylenol 650mg Supp) 650 mg RC Q4H PRN PRN Reason: Fever >101 Stop: 05/14/17 19:12 Diphenhydramine HCl (Benadryl 50 Mg/Ml) 25 mg IM Q6HR PRN PRN Reason: Anxiety Stop: 05/15/17 11:11 Last Admin: 03/17/17 20:18 Dose: 25 mg Haloperidol Lactate (Haldol) 2 mg IM Q6HR PRN PRN Reason: Agitation Stop: 05/15/17 11:13 Last Admin: 03/18/17 11:11 Dose: 2 mg Dextrose (D5w) 1,000 mls @ 50 mls/hr IV .Q20H [facility] Stop: 05/17/17 13:32 Last Infusion: 03/18/17 18:42 Dose: 50 mls/hr Piperacillin Sod/Tazobactam (Sod 2.25 gm/ Sodium Chloride) 50 mls @ 100 mls/hr IV Q6HR [facility] Stop: 05/17/17 17:59 Last Infusion: 03/18/17 18:14 Dose: Infused Insulin Aspart (Novolog Insulin Sliding Scale) 0 units SUBQ ACHS [facility] PRN Reason: Protocol Stop: 05/14/17 20:59 Last Admin: 03/18/17 16:16 Dose: 8 units Miscellaneous (Zosyn Iv Per Pharmacy) 1 ea MC PRN PRN PRN Reason: RENAL DOSE ZOSYN Stop: 05/15/17 08:23 Ondansetron HCl (Zofran) 4 mg IV Q6H PRN PRN Reason: Nausea / Vomiting Stop: 05/14/17 19:13 Quetiapine Fumarate (Seroquel) 50 mg PO HS [facility] PRN Reason: Protocol Stop: 05/17/17 20:59 General: No acute distress Cardiovascular: Regular rate Lungs: Clear to auscultation Abdomen: Soft, no Tender Assessment/Plan - Assessment Assessment: Lethargy improving Dehydration improving Acute kindney injury improving Sepsis unclear source better Advance dementia with behavior problems Mental health disorder DM II HTN Constipation Hypernatremia Dysphagia - Plan Plan: Patient better D5 W IV Fluids with KCL WBC better Continue IV Rocephine Follow up on culture Chest xray no acute findings Follow up labs in am Accucheck and ISS coverage Dysphagia diet started PT/OT/ST eval Plan of care discussed with nursing staff Nutritional Asmnt/Malnutr-PDOC - Dietary Evaluation Malnutrition Findings (Please click <Entered> for more info): Nutritional Asmnt/Malnutrition Start: 03/16/17 16: 08 Text: Status: Complete Freq: Document 03/16/17 16:08 MARIELOS (Rec: 03/16/17 16:27 [email or web address]) Nutritional Asmnt/Malnutrition Patient General Information Nutritional Screening High Risk Screening Diagnosis Lethargy, dehydration, TATI, sepsis unclear source Pertinent Medical Hx/Surgical Hx HTN, dementia, mental health disorder, DM Subjective Information 87 year old female, pt transfered from [facility]. Pt was awake, mittens on, smiled. Spoke to daughter at bedside. Pt's diet order was pureed [id number] at [facility], avg 75% of meals meeting nutritional needs for >1wk until recent few days became lethargic with poor PO, then pt was transfered to ICU. Pt has been NPO since adm, swallow eval pending. Explained to daughter diet texture per ST. Pt is overall thin, unable to complete physical assessment as blanket pulled up to neck. Current Diet Order/ Nutrition Support NPO Pertinent Medications Haldol, Novolog, Zofran, D5w Pertinent Labs 03/16: potassium 3.1L, BUN 79H, creaitnine 1.8H, glucose 381H Nutritional Hx/Data Height 1.57 m Height (Calculated Centimeters) 157.5 Current Weight (lbs) 47.174 kg Weight (Calculated Kilograms) 47.2 Weight (Calculated Grams) [address]78[address].6 [place] Body Weight 110 Weight Status Approriate GI Symptoms Food Allergies No Cultural/Ethnic/Hinduism Belief Pt likes mashed potatoes, cranberry juice. Skin Integrity/Comment: Toni 13. Right buttock discoloration. Estimated Nutritional Goals Calories/Kcals/Kg IBW 110lb/50kg Kcals Calculated 1500-1750kcal (30-35kcal/kg) Protein Calculated 60-75g (1.2-1.5g/kg, renal vs. sepsis) Fluid: ml 1500-1750ml (1ml/kcal) Nutritional Problem 2. Problem Problem Altered nutrition related laboratory values related to Etiology DM aeb Signs/Symptoms: glucose 173H 381H, pt is on insulin 1. Problem Problem (possible) difficulty swallowing related to Etiology unknown etiology aeb Signs/Symptoms: pt has been kept NPO, swallow eval pending Intervention/Recommendation Comments 1. Diet texture per ST. Recommend diet [id number] low sodium with Boost Glucose Control BID. Expected Outcomes/Goals Expected Outcomes/Goals 1. PO intake to meet at least 75% fo estimated nutritional needs.
--- NOTE | 2017-03-18 21:24 | Infectious Disease Prog Note ---
Infectious Disease Subjective - Review of Systems Service Date: 03/18/17 Subjective: There is no new change, no fever. Infectious Disease Objective - Results Result Diagrams: 03/18/17 05:05 03/18/17 05:05 Recent Labs: Laboratory Last Values WBC 13.2 Th/cmm (4.8-10.8) H 03/18/17 05:05 RBC 3.28 Mil/cmm (3.80-5.20) L 03/18/17 05:05 Hgb 9.3 gm/dL (11.7-16.1) L 03/18/17 05:05 Hct 28.5 % (35.0-45.0) L D 03/18/17 05:05 MCV 87.0 fl (81-100) 03/18/17 05:05 MCH 28.5 pg (27.0-31.0) 03/18/17 05:05 MCHC Differential 32.7 pg (28.0-36.0) 03/18/17 05:05 RDW 14.7 % (11.5-20.0) 03/18/17 05:05 Plt Count 139 Th/cmm (150-400) L D 03/18/17 05:05 MPV 11.4 fl 03/18/17 05:05 Neutrophils % 64.7 % (40.0-80.0) 03/18/17 05:05 Lymphocytes % 28.7 % (20.0-50.0) 03/18/17 05:05 Monocytes % 4.6 % (2.0-10.0) 03/18/17 05:05 Eosinophils % 1.9 % (0.0-5.0) 03/18/17 05:05 Basophils % 0.1 % (0.0-2.0) 03/18/17 05:05 Sodium 148 mEq/L (136-145) H 03/18/17 05:05 Potassium 4.0 mEq/L (3.5-5.1) 03/18/17 05:05 Chloride 123 mEq/L (98-107) H 03/18/17 05:05 Carbon Dioxide 21.7 mEq/L (21.0-31.0) 03/18/17 05:05 Anion Gap 7.3 (7.0-16.0) 03/18/17 05:05 BUN 30 mg/dL (7-25) H 03/18/17 05:05 Creatinine 1.0 mg/dL (0.6-1.2) 03/18/17 05:05 Est GFR ( Amer) TNP 03/18/17 05:05 Est GFR (Non-Af Amer) TNP 03/18/17 05:05 BUN/Creatinine Ratio 30.0 03/18/17 05:05 Glucose 152 mg/dL (70-105) H 03/18/17 05:05 POC Glucose 374 MG/DL (70 - 105) H 03/18/17 16:11 Whole Bld Lactic Acid 1.91 mmol/L (0.60-1.99) 03/17/17 06:19 Calcium 8.0 mg/dL (8.6-10.3) L 03/18/17 05:05 Phosphorus 4.8 mg/dL (2.5-5.0) 03/17/17 06:19 Total Bilirubin 0.4 mg/dL (0.3-1.0) 03/16/17 04:46 AST 33 U/L (13-39) 03/16/17 04:46 ALT 27 U/L (7-52) 03/16/17 04:46 Alkaline Phosphatase 94 U/L (34-104) 03/16/17 04:46 Total Protein 6.9 gm/dL (6.0-8.3) 03/16/17 04:46 Albumin 3.3 gm/dL (3.7-5.3) L 03/16/17 04:46 Globulin 3.6 gm/dL 03/16/17 04:46 Albumin/Globulin Ratio 0.9 (1.0-1.8) L 03/16/17 04:46 Urine Source CATH 03/15/17 22:00 Urine Color YELLOW 03/15/17 22:00 Urine Clarity HAZY (CLEAR) 03/15/17 22:00 Urine pH 5.5 03/15/17 22:00 Ur Specific [place] 1.025 (1.005-1.030) 03/15/17 22:00 Urine Protein >300 mg/dL (NEGATIVE) H 03/15/17 22:00 Urine Glucose (UA) NEGATIVE mg/dL (NEGATIVE) 03/15/17 22:00 Urine Ketones TRACE mg/dL (NEGATIVE) 03/15/17 22:00 Urine Blood MODERATE (NEGATIVE) H 03/15/17 22:00 Urine Nitrate NEGATIVE (NEGATIVE) 03/15/17 22:00 Urine Bilirubin NEGATIVE (NEGATIVE) 03/15/17 22:00 Urine Urobilinogen 0.2 E.U./dL (0.2 - 1.0) 03/15/17 22:00 Ur Leukocyte Esterase TRACE (NEGATIVE) H 03/15/17 22:00 Urine RBC 2-5 /hpf (0-5) 03/15/17 22:00 Urine WBC 6-10 /hpf (0-5) H 03/15/17 22:00 Ur Epithelial Cells FEW /lpf (FEW) 03/15/17 22:00 Amorphous Sediment MODERATE URATES (NONE SEEN) 03/15/17 22:00 Urine Bacteria MANY /hpf (NONE SEEN) 03/15/17 22:00 - Physical Exam Vitals and I&O: Vital Signs Temp 98 F 03/18/17 20:00 Pulse 76 03/18/17 20:00 Resp 18 03/18/17 20:00 BP 127/63 03/18/17 20:00 Pulse Ox 94 03/18/17 20:00 Intake & Output 03/18/17 03/18/17 03/19/17 06:59 18:59 06:59 Intake Total 1065 1050.833 Output Total 300 300 Balance 765 750.833 Weight (lbs) 54.091 kg 53.977 kg Intake: Intake, IV Amount 1065 250.833 Dextrose 5% 1,000 ml @ 50 200.833 mls/hr IV .Q20H JAMES Rx#: [id number] Piperacillin Sodium/ 50 Tazobact 2.25 gm In Sodium Chloride 0.9% 50 ml @ 100 mls/hr IV Q6HR JAMES Rx#:[id number] Piperacillin Sodium/ 50 Tazobact 2.25 gm In Sodium Chloride 0.9% 50 ml @ 100 mls/hr IV Q8H JAMES Rx#:[id number] Potassium Chloride 30 meq 1015 In Dextrose 5% 1,000 ml @ 75 mls/hr IV .[id number] JAMES Rx#:[id number] Oral 800 Output: Urine 300 300 Other: # Bowel Movements 1 2 Active Medications: Current Medications Acetaminophen (Tylenol 650mg Supp) 650 mg RC Q4H PRN PRN Reason: Fever >101 Stop: 05/14/17 19:12 Diphenhydramine HCl (Benadryl 50 Mg/Ml) 25 mg IM Q6HR PRN PRN Reason: Anxiety Stop: 05/15/17 11:11 Last Admin: 03/17/17 20:18 Dose: 25 mg Haloperidol Lactate (Haldol) 2 mg IM Q6HR PRN PRN Reason: Agitation Stop: 05/15/17 11:13 Last Admin: 03/18/17 11:11 Dose: 2 mg Dextrose (D5w) 1,000 mls @ 50 mls/hr IV .Q20H JAMES Stop: 05/17/17 13:32 Last Infusion: 03/18/17 18:42 Dose: 50 mls/hr Piperacillin Sod/Tazobactam (Sod 2.25 gm/ Sodium Chloride) 50 mls @ 100 mls/hr IV Q6HR [facility] Stop: 05/17/17 17:59 Last Infusion: 03/18/17 18:14 Dose: Infused Insulin Aspart (Novolog Insulin Sliding Scale) 0 units SUBQ ACHS [facility] PRN Reason: Protocol Stop: 05/14/17 20:59 Last Admin: 03/18/17 16:16 Dose: 8 units Miscellaneous (Zosyn Iv Per Pharmacy) 1 ea MC PRN PRN PRN Reason: RENAL DOSE ZOSYN Stop: 05/15/17 08:23 Ondansetron HCl (Zofran) 4 mg IV Q6H PRN PRN Reason: Nausea / Vomiting Stop: 05/14/17 19:13 Quetiapine Fumarate (Seroquel) 50 mg PO HS [facility] PRN Reason: Protocol Stop: 05/17/17 20:59 General: no acute distress, well developed, well nourished HEENT: atraumatic, no normocephalic Neck: supple, no thyromegaly Cardiovascular: S1S2, regular Lungs: clear to auscultation bilaterally, clear to percussion Abdomen: soft, no tender Extremities: no cyanosis, no clubbing, no edema Neurological: awake, alert Infectious Disease Assmt/Plan - Assessment Assessment: 1. Leukocytosis with fever, sepsis. 2/2 UTI. 2. Acute kidney injury. improved. 3. Psychosis. 4. Hypertension. 5. Diabetes mellitus type II. 6. Lactic acidemia, improved. 7. UTI. Plan: Continue zosyn. Nutritional Asmnt/Malnutr-PDOC - Dietary Evaluation Malnutrition Findings (Please click <Entered> for more info): Nutritional Asmnt/Malnutrition Start: 03/16/17 16: 08 Text: Status: Complete Freq: Document 03/16/17 16:08 GSUN (Rec: 03/16/17 16:27 GSUN [email or web address]) Nutritional Asmnt/Malnutrition Patient General Information Nutritional Screening High Risk Screening Diagnosis Lethargy, dehydration, TATI, sepsis unclear source Pertinent Medical Hx/Surgical Hx HTN, dementia, mental health disorder, DM Subjective Information 87 year old female, pt transfered from [facility]. Pt was awake, mittens on, smiled. Spoke to daughter at bedside. Pt's diet order was pureed [id number] at [facility], avg 75% of meals meeting nutritional needs for >1wk until recent few days became lethargic with poor PO, then pt was transfered to ICU. Pt has been NPO since adm, swallow eval pending. Explained to daughter diet texture per ST. Pt is overall thin, unable to complete physical assessment as blanket pulled up to neck. Current Diet Order/ Nutrition Support NPO Pertinent Medications Haldol, Novolog, Zofran, D5w Pertinent Labs 03/16: potassium 3.1L, BUN 79H, creaitnine 1.8H, glucose 381H Nutritional Hx/Data Height 1.57 m Height (Calculated Centimeters) 157.5 Current Weight (lbs) 47.174 kg Weight (Calculated Kilograms) 47.2 Weight (Calculated Grams) 72673.6 [place] Body Weight 110 Weight Status Approriate GI Symptoms Food Allergies No Cultural/Ethnic/[place]ah[place] Belief Pt likes mashed potatoes, cranberry juice. Skin Integrity/Comment: Toni 13. Right buttock discoloration. Estimated Nutritional Goals Calories/Kcals/Kg IBW 110lb/50kg Kcals Calculated 1500-1750kcal (30-35kcal/kg) Protein Calculated 60-75g (1.2-1.5g/kg, renal vs. sepsis) Fluid: ml 1500-1750ml (1ml/kcal) Nutritional Problem 2. Problem Problem Altered nutrition related laboratory values related to Etiology DM aeb Signs/Symptoms: glucose 173H 381H, pt is on insulin 1. Problem Problem (possible) difficulty swallowing related to Etiology unknown etiology aeb Signs/Symptoms: pt has been kept NPO, swallow eval pending Intervention/Recommendation Comments 1. Diet texture per ST. Recommend diet [id number] low sodium with Boost Glucose Control BID. Expected Outcomes/Goals Expected Outcomes/Goals 1. PO intake to meet at least 75% fo estimated nutritional needs.
[2017-03-19] MEDS: Piperacillin/Tazobact 2.25 gm in 0.9% NS 50 ML IV SCH ×3 (01:02→12:31)
[2017-03-19] MEDS: INSULIN ASPART SLIDING SCALE 100 UNITS/ML UNIT SUBQ SCH ×3 (06:30→17:31)
[2017-03-19 06:47] LABS: % BASOPHILS 0.2 % (0.0-2.0); % EOSINOPHILS 3.3 % (0.0-5.0); % LYMPHOCYTES 22.7 % (20.0-50.0); % MONOCYTES 6.8 % (2.0-10.0); HEMATOCRIT 28.2 % (35.0-45.0); HEMOGLOBIN 9.3 gm/dL (11.7-16.1); MEAN CELL VOLUME 87.7 fl (81-100); MEAN CORPUSCULAR HEMOGLOBIN 28.9 pg (27.0-31.0); MEAN CORPUSCULAR HGB CONC 32.9 pg (28.0-36.0); MEAN PLATELET VOLUME 10.8 fl; NEUTROPHILE ABSOLUTE 7.4 Th/cmm (1.8-8.0); PLATELET COUNT 156 Th/cmm (150-400); RED BLOOD COUNT 3.22 Mil/cmm (3.80-5.20); RED CELL DISTRIBUTION WIDTH 14.1 % (11.5-20.0)
[2017-03-19 07:05] LABS: ANION GAP 7.2 (7.0-16.0); BUN - UREA NITROGEN 17 mg/dL (7-25); CALCIUM SERUM 8.2 mg/dL (8.6-10.3); CARBON DIOXIDE 24.4 mEq/L (21.0-31.0); CHLORIDE 113 mEq/L (98-107); GLUCOSE 260 mg/dL (70-105); POTASSIUM SERUM 3.6 mEq/L (3.5-5.1); SODIUM SERUM 141 mEq/L (136-145)
[2017-03-19 10:16] LABS: IRON SATURATION 28 % (15-55); TIBC (LCI) 175 ug/dL (250-450); UIBC 126 ug/dL (118-369)
[2017-03-19] MEDS: Dextrose 5% 1,000 ML IV SCH (11:05)
--- NOTE | 2017-03-19 12:32 | General Progress Note ---
Subjective - Review of Systems Service Date: 03/19/17 Subjective: Patient seems more awake confused afebrile Objective - Results Result Diagrams: 03/19/17 06:20 03/19/17 06:20 Recent Labs: Laboratory Last Values WBC 11.0 Th/cmm (4.8-10.8) H 03/19/17 06:20 RBC 3.22 Mil/cmm (3.80-5.20) L 03/19/17 06:20 Hgb 9.3 gm/dL (11.7-16.1) L 03/19/17 06:20 Hct 28.2 % (35.0-45.0) L 03/19/17 06:20 MCV 87.7 fl (81-100) 03/19/17 06:20 MCH 28.9 pg (27.0-31.0) 03/19/17 06:20 MCHC Differential 32.9 pg (28.0-36.0) 03/19/17 06:20 RDW 14.1 % (11.5-20.0) 03/19/17 06:20 Plt Count 156 Th/cmm (150-400) 03/19/17 06:20 MPV 10.8 fl 03/19/17 06:20 Neutrophils % 67.0 % (40.0-80.0) 03/19/17 06:20 Lymphocytes % 22.7 % (20.0-50.0) 03/19/17 06:20 Monocytes % 6.8 % (2.0-10.0) 03/19/17 06:20 Eosinophils % 3.3 % (0.0-5.0) 03/19/17 06:20 Basophils % 0.2 % (0.0-2.0) 03/19/17 06:20 Sodium 141 mEq/L (136-145) 03/19/17 06:20 Potassium 3.6 mEq/L (3.5-5.1) 03/19/17 06:20 Chloride 113 mEq/L (98-107) H 03/19/17 06:20 Carbon Dioxide 24.4 mEq/L (21.0-31.0) 03/19/17 06:20 Anion Gap 7.2 (7.0-16.0) 03/19/17 06:20 BUN 17 mg/dL (7-25) 03/19/17 06:20 Creatinine 1.0 mg/dL (0.6-1.2) 03/19/17 06:20 Est GFR ( Amer) TNP 03/19/17 06:20 Est GFR (Non-Af Amer) TNP 03/19/17 06:20 BUN/Creatinine Ratio 17.0 03/19/17 06:20 Glucose 260 mg/dL (70-105) H 03/19/17 06:20 POC Glucose 387 MG/DL (70 - 105) H 03/19/17 11:06 Whole Bld Lactic Acid 1.91 mmol/L (0.60-1.99) 03/17/17 06:19 Calcium 8.2 mg/dL (8.6-10.3) L 03/19/17 06:20 Phosphorus 4.8 mg/dL (2.5-5.0) 03/17/17 06:19 Iron 49 ug/dL (27-139) 03/18/17 05:05 TIBC 175 ug/dL (250-450) L 03/18/17 05:05 Iron Saturation 28 % (15-55) 03/18/17 05:05 Unsaturated IBC 126 ug/dL (118-369) 03/18/17 05:05 Total Bilirubin 0.4 mg/dL (0.3-1.0) 03/16/17 04:46 AST 33 U/L (13-39) 03/16/17 04:46 ALT 27 U/L (7-52) 03/16/17 04:46 Alkaline Phosphatase 94 U/L (34-104) 03/16/17 04:46 Total Protein 6.9 gm/dL (6.0-8.3) 03/16/17 04:46 Albumin 3.3 gm/dL (3.7-5.3) L 03/16/17 04:46 Globulin 3.6 gm/dL 03/16/17 04:46 Albumin/Globulin Ratio 0.9 (1.0-1.8) L 03/16/17 04:46 Urine Source CATH 03/15/17 22:00 Urine Color YELLOW 03/15/17 22:00 Urine Clarity HAZY (CLEAR) 03/15/17 22:00 Urine pH 5.5 03/15/17 22:00 Ur Specific [place] 1.025 (1.005-1.030) 03/15/17 22:00 Urine Protein >300 mg/dL (NEGATIVE) H 03/15/17 22:00 Urine Glucose (UA) NEGATIVE mg/dL (NEGATIVE) 03/15/17 22:00 Urine Ketones TRACE mg/dL (NEGATIVE) 03/15/17 22:00 Urine Blood MODERATE (NEGATIVE) H 03/15/17 22:00 Urine Nitrate NEGATIVE (NEGATIVE) 03/15/17 22:00 Urine Bilirubin NEGATIVE (NEGATIVE) 03/15/17 22:00 Urine Urobilinogen 0.2 E.U./dL (0.2 - 1.0) 03/15/17 22:00 Ur Leukocyte Esterase TRACE (NEGATIVE) H 03/15/17 22:00 Urine RBC 2-5 /hpf (0-5) 03/15/17 22:00 Urine WBC 6-10 /hpf (0-5) H 03/15/17 22:00 Ur Epithelial Cells FEW /lpf (FEW) 03/15/17 22:00 Amorphous Sediment MODERATE URATES (NONE SEEN) 03/15/17 22:00 Urine Bacteria MANY /hpf (NONE SEEN) 03/15/17 22:00 - Physical Exam Vitals and I&O: Vital Signs Temp 97.5 F 03/19/17 11:58 Pulse 61 03/19/17 11:58 Resp 18 03/19/17 11:58 BP 112/50 03/19/17 11:58 Pulse Ox 97 03/19/17 11:58 Intake & Output 03/18/17 03/19/17 03/19/17 18:59 06:59 18:59 Intake Total 1050.833 50 220 Output Total 300 700 Balance 750.833 -650 220 Weight (lbs) 53.977 kg 48.534 kg 48.534 kg Intake: Intake, IV Amount 250.833 50 Dextrose 5% 1,000 ml @ 50 200.833 mls/hr IV .Q20H [facility] Rx#: [id number] Piperacillin Sodium/ 50 50 Tazobact 2.25 gm In Sodium Chloride 0.9% 50 ml @ 100 mls/hr IV Q6HR [facility] Rx#:[id number] Oral 800 220 Output: Urine 300 700 Other: # Bowel Movements 2 2 Stool Characteristics Soft Formed Brown Active Medications: Current Medications Acetaminophen (Tylenol 650mg Supp) 650 mg RC Q4H PRN PRN Reason: Fever >101 Stop: 05/14/17 19:12 Diphenhydramine HCl (Benadryl 50 Mg/Ml) 25 mg IM Q6HR PRN PRN Reason: Anxiety Stop: 05/15/17 11:11 Last Admin: 03/18/17 22:41 Dose: 25 mg Haloperidol Lactate (Haldol) 2 mg IM Q6HR PRN PRN Reason: Agitation Stop: 05/15/17 11:13 Last Admin: 03/18/17 11:11 Dose: 2 mg Dextrose (D5w) 1,000 mls @ 50 mls/hr IV .Q20H [facility] Stop: 05/17/17 13:32 Last Infusion: 03/18/17 18:42 Dose: 50 mls/hr Piperacillin Sod/Tazobactam (Sod 2.25 gm/ Sodium Chloride) 50 mls @ 100 mls/hr IV Q6HR [facility] Stop: 05/17/17 17:59 Last Admin: 03/19/17 06:22 Dose: 100 mls/hr Insulin Aspart (Novolog Insulin Sliding Scale) 0 units SUBQ ACHS [facility] PRN Reason: Protocol Stop: 05/14/17 20:59 Last Admin: 03/19/17 06:30 Dose: 4 units Miscellaneous (Zosyn Iv Per Pharmacy) 1 ea MC PRN PRN PRN Reason: RENAL DOSE ZOSYN Stop: 05/15/17 08:23 Ondansetron HCl (Zofran) 4 mg IV Q6H PRN PRN Reason: Nausea / Vomiting Stop: 05/14/17 19:13 Quetiapine Fumarate (Seroquel) 50 mg PO HS [facility] PRN Reason: Protocol Stop: 05/17/17 20:59 General: No acute distress Cardiovascular: Regular rate Lungs: Clear to auscultation Abdomen: Soft, no Tender Assessment/Plan - Assessment Assessment: Lethargy improving Dehydration improving Acute kindney injury improving Sepsis unclear source better Advance dementia with behavior problems Mental health disorder DM II HTN Constipation Hypernatremia Dysphagia - Plan Plan: Patient better DC planing back to [facility] DC Zosyn upon discharge per ID recomendations Case discussed with ID recomended levaquin and doxycycline for 5 days DC plan discussed with nursing staff Nutritional Asmnt/Malnutr-PDOC - Dietary Evaluation Malnutrition Findings (Please click <Entered> for more info): Nutritional Asmnt/Malnutrition Start: 03/16/17 16: 08 Text: Status: Complete Freq: Document 03/16/17 16:08 MARIELOS (Rec: 03/16/17 16:27 [id number]) Nutritional Asmnt/Malnutrition Patient General Information Nutritional Screening High Risk Screening Diagnosis Lethargy, dehydration, TATI, sepsis unclear source Pertinent Medical Hx/Surgical Hx HTN, dementia, mental health disorder, DM Subjective Information 87 year old female, pt transfered from [facility]. Pt was awake, mittens on, smiled. Spoke to daughter at bedside. Pt's diet order was pureed [id number] at [facility], avg 75% of meals meeting nutritional needs for >1wk until recent few days became lethargic with poor PO, then pt was transfered to ICU. Pt has been NPO since adm, swallow eval pending. Explained to daughter diet texture per ST. Pt is overall thin, unable to complete physical assessment as blanket pulled up to neck. Current Diet Order/ Nutrition Support NPO Pertinent Medications Haldol, Novolog, Zofran, D5w Pertinent Labs 03/16: potassium 3.1L, BUN 79H, creaitnine 1.8H, glucose 381H Nutritional Hx/Data Height 1.57 m Height (Calculated Centimeters) 157.5 Current Weight (lbs) 47.174 kg Weight (Calculated Kilograms) 47.2 Weight (Calculated Grams) 09044.6 [place] Body Weight 110 Weight Status Approriate GI Symptoms Food Allergies No Cultural/Ethnic/M[employer] Belief Pt likes mashed potatoes, cranberry juice. Skin Integrity/Comment: Toni 13. Right buttock discoloration. Estimated Nutritional Goals Calories/Kcals/Kg IBW 110lb/50kg Kcals Calculated 1500-1750kcal (30-35kcal/kg) Protein Calculated 60-75g (1.2-1.5g/kg, renal vs. sepsis) Fluid: ml 1500-1750ml (1ml/kcal) Nutritional Problem 2. Problem Problem Altered nutrition related laboratory values related to Etiology DM aeb Signs/Symptoms: glucose 173H 381H, pt is on insulin 1. Problem Problem (possible) difficulty swallowing related to Etiology unknown etiology aeb Signs/Symptoms: pt has been kept NPO, swallow eval pending Intervention/Recommendation Comments 1. Diet texture per ST. Recommend diet [id number] low sodium with Boost Glucose Control BID. Expected Outcomes/Goals Expected Outcomes/Goals 1. PO intake to meet at least 75% fo estimated nutritional needs.
--- NOTE | 2017-03-19 12:37 | Infectious Disease Prog Note ---
Infectious Disease Subjective - Review of Systems Service Date: 03/19/17 Subjective: There is no new change, no fever. Infectious Disease Objective - Results Result Diagrams: 03/19/17 06:20 03/19/17 06:20 Recent Labs: Laboratory Last Values WBC 11.0 Th/cmm (4.8-10.8) H 03/19/17 06:20 RBC 3.22 Mil/cmm (3.80-5.20) L 03/19/17 06:20 Hgb 9.3 gm/dL (11.7-16.1) L 03/19/17 06:20 Hct 28.2 % (35.0-45.0) L 03/19/17 06:20 MCV 87.7 fl (81-100) 03/19/17 06:20 MCH 28.9 pg (27.0-31.0) 03/19/17 06:20 MCHC Differential 32.9 pg (28.0-36.0) 03/19/17 06:20 RDW 14.1 % (11.5-20.0) 03/19/17 06:20 Plt Count 156 Th/cmm (150-400) 03/19/17 06:20 MPV 10.8 fl 03/19/17 06:20 Neutrophils % 67.0 % (40.0-80.0) 03/19/17 06:20 Lymphocytes % 22.7 % (20.0-50.0) 03/19/17 06:20 Monocytes % 6.8 % (2.0-10.0) 03/19/17 06:20 Eosinophils % 3.3 % (0.0-5.0) 03/19/17 06:20 Basophils % 0.2 % (0.0-2.0) 03/19/17 06:20 Sodium 141 mEq/L (136-145) 03/19/17 06:20 Potassium 3.6 mEq/L (3.5-5.1) 03/19/17 06:20 Chloride 113 mEq/L (98-107) H 03/19/17 06:20 Carbon Dioxide 24.4 mEq/L (21.0-31.0) 03/19/17 06:20 Anion Gap 7.2 (7.0-16.0) 03/19/17 06:20 BUN 17 mg/dL (7-25) 03/19/17 06:20 Creatinine 1.0 mg/dL (0.6-1.2) 03/19/17 06:20 Est GFR ( Amer) TNP 03/19/17 06:20 Est GFR (Non-Af Amer) TNP 03/19/17 06:20 BUN/Creatinine Ratio 17.0 03/19/17 06:20 Glucose 260 mg/dL (70-105) H 03/19/17 06:20 POC Glucose 387 MG/DL (70 - 105) H 03/19/17 11:06 Whole Bld Lactic Acid 1.91 mmol/L (0.60-1.99) 03/17/17 06:19 Calcium 8.2 mg/dL (8.6-10.3) L 03/19/17 06:20 Phosphorus 4.8 mg/dL (2.5-5.0) 03/17/17 06:19 Iron 49 ug/dL (27-139) 03/18/17 05:05 TIBC 175 ug/dL (250-450) L 03/18/17 05:05 Iron Saturation 28 % (15-55) 03/18/17 05:05 Unsaturated IBC 126 ug/dL (118-369) 03/18/17 05:05 Total Bilirubin 0.4 mg/dL (0.3-1.0) 03/16/17 04:46 AST 33 U/L (13-39) 03/16/17 04:46 ALT 27 U/L (7-52) 03/16/17 04:46 Alkaline Phosphatase 94 U/L (34-104) 03/16/17 04:46 Total Protein 6.9 gm/dL (6.0-8.3) 03/16/17 04:46 Albumin 3.3 gm/dL (3.7-5.3) L 03/16/17 04:46 Globulin 3.6 gm/dL 03/16/17 04:46 Albumin/Globulin Ratio 0.9 (1.0-1.8) L 03/16/17 04:46 Urine Source CATH 03/15/17 22:00 Urine Color YELLOW 03/15/17 22:00 Urine Clarity HAZY (CLEAR) 03/15/17 22:00 Urine pH 5.5 03/15/17 22:00 Ur Specific [place] 1.025 (1.005-1.030) 03/15/17 22:00 Urine Protein >300 mg/dL (NEGATIVE) H 03/15/17 22:00 Urine Glucose (UA) NEGATIVE mg/dL (NEGATIVE) 03/15/17 22:00 Urine Ketones TRACE mg/dL (NEGATIVE) 03/15/17 22:00 Urine Blood MODERATE (NEGATIVE) H 03/15/17 22:00 Urine Nitrate NEGATIVE (NEGATIVE) 03/15/17 22:00 Urine Bilirubin NEGATIVE (NEGATIVE) 03/15/17 22:00 Urine Urobilinogen 0.2 E.U./dL (0.2 - 1.0) 03/15/17 22:00 Ur Leukocyte Esterase TRACE (NEGATIVE) H 03/15/17 22:00 Urine RBC 2-5 /hpf (0-5) 03/15/17 22:00 Urine WBC 6-10 /hpf (0-5) H 03/15/17 22:00 Ur Epithelial Cells FEW /lpf (FEW) 03/15/17 22:00 Amorphous Sediment MODERATE URATES (NONE SEEN) 03/15/17 22:00 Urine Bacteria MANY /hpf (NONE SEEN) 03/15/17 22:00 - Physical Exam Vitals and I&O: Vital Signs Temp 97.5 F 03/19/17 11:58 Pulse 61 03/19/17 11:58 Resp 18 03/19/17 11:58 BP 112/50 03/19/17 11:58 Pulse Ox 97 03/19/17 11:58 Intake & Output 03/18/17 03/19/17 03/19/17 18:59 06:59 18:59 Intake Total 1050.694 711 3678.167 Output Total 300 700 Balance 750.833 -600 1019.167 Weight (lbs) 53.977 kg 48.534 kg 48.534 kg Intake: Intake, IV Amount 250.833 100 799.167 Dextrose 5% 1,000 ml @ 50 200.833 799.167 mls/hr IV .Q20H JAMES Rx#: [id number] Piperacillin Sodium/ 50 100 Tazobact 2.25 gm In Sodium Chloride 0.9% 50 ml @ 100 mls/hr IV Q6HR JAMES Rx#:[id number] Oral 800 220 Output: Urine 300 700 Other: # Bowel Movements 2 2 Stool Characteristics Soft Formed Brown Active Medications: Current Medications Acetaminophen (Tylenol 650mg Supp) 650 mg RC Q4H PRN PRN Reason: Fever >101 Stop: 05/14/17 19:12 Diphenhydramine HCl (Benadryl 50 Mg/Ml) 25 mg IM Q6HR PRN PRN Reason: Anxiety Stop: 05/15/17 11:11 Last Admin: 03/18/17 22:41 Dose: 25 mg Doxycycline Hyclate (Vibramycin) 100 mg PO Q12HR JAMES Stop: 05/18/17 20:59 Haloperidol Lactate (Haldol) 2 mg IM Q6HR PRN PRN Reason: Agitation Stop: 05/15/17 11:13 Last Admin: 03/18/17 11:11 Dose: 2 mg Dextrose (D5w) 1,000 mls @ 50 mls/hr IV .Q20H [facility] Stop: 05/17/17 13:32 Last Admin: 03/19/17 11:05 Dose: 50 mls/hr Piperacillin Sod/Tazobactam (Sod 2.25 gm/ Sodium Chloride) 50 mls @ 100 mls/hr IV Q6HR [facility] Stop: 05/17/17 17:59 Last Admin: 03/19/17 12:31 Dose: 100 mls/hr Insulin Aspart (Novolog Insulin Sliding Scale) 0 units SUBQ ACHS JAMES PRN Reason: Protocol Stop: 05/14/17 20:59 Last Admin: 03/19/17 12:31 Dose: 8 units Miscellaneous (Zosyn Iv Per Pharmacy) 1 ea MC PRN PRN PRN Reason: RENAL DOSE ZOSYN Stop: 05/15/17 08:23 Ondansetron HCl (Zofran) 4 mg IV Q6H PRN PRN Reason: Nausea / Vomiting Stop: 05/14/17 19:13 Quetiapine Fumarate (Seroquel) 50 mg PO HS JAMES PRN Reason: Protocol Stop: 05/17/17 20:59 General: no acute distress, well developed, well nourished HEENT: atraumatic, normocephalic, PERRLA, EOMI, moist mucous membrane Neck: supple, no thyromegaly Cardiovascular: S1S2, regular Lungs: clear to auscultation bilaterally, clear to percussion Abdomen: soft, no tender, no distended Extremities: no cyanosis, no clubbing Neurological: awake, alert Skin: intact Infectious Disease Assmt/Plan - Assessment Assessment: 1. Leukocytosis with fever, sepsis. 2/2 UTI. 2. Acute kidney injury. improved. 3. Psychosis. 4. Hypertension. 5. Diabetes mellitus type II. 6. Lactic acidemia, improved. 7. UTI. Plan: Continue zosyn. dc to snf today on po levaquin x 3days. Nutritional Asmnt/Malnutr-PDOC - Dietary Evaluation Malnutrition Findings (Please click <Entered> for more info): Nutritional Asmnt/Malnutrition Start: 03/16/17 16: 08 Text: Status: Complete Freq: Document 03/16/17 16:08 GSANDREIA (Rec: 03/16/17 16:27 [email or web address]) Nutritional Asmnt/Malnutrition Patient General Information Nutritional Screening High Risk Screening Diagnosis Lethargy, dehydration, TATI, sepsis unclear source Pertinent Medical Hx/Surgical Hx HTN, dementia, mental health disorder, DM Subjective Information 87 year old female, pt transfered from [facility]. Pt was awake, mittens on, smiled. Spoke to daughter at bedside. Pt's diet order was pureed [id number] at [facility], avg 75% of meals meeting nutritional needs for >1wk until recent few days became lethargic with poor PO, then pt was transfered to ICU. Pt has been NPO since adm, swallow eval pending. Explained to daughter diet texture per ST. Pt is overall thin, unable to complete physical assessment as blanket pulled up to neck. Current Diet Order/ Nutrition Support NPO Pertinent Medications Haldol, Novolog, Zofran, D5w Pertinent Labs 03/16: potassium 3.1L, BUN 79H, creaitnine 1.8H, glucose 381H Nutritional Hx/Data Height 1.57 m Height (Calculated Centimeters) 157.5 Current Weight (lbs) 47.174 kg Weight (Calculated Kilograms) 47.2 Weight (Calculated Grams) 81515.6 [place] Body Weight 110 Weight Status Approriate GI Symptoms Food Allergies No Cultural/Ethnic/Denominational Belief Pt likes mashed potatoes, cranberry juice. Skin Integrity/Comment: Toni 13. Right buttock discoloration. Estimated Nutritional Goals Calories/Kcals/Kg IBW 110lb/50kg Kcals Calculated 1500-1750kcal (30-35kcal/kg) Protein Calculated 60-75g (1.2-1.5g/kg, renal vs. sepsis) Fluid: ml 1500-1750ml (1ml/kcal) Nutritional Problem 2. Problem Problem Altered nutrition related laboratory values related to Etiology DM aeb Signs/Symptoms: glucose 173H 381H, pt is on insulin 1. Problem Problem (possible) difficulty swallowing related to Etiology unknown etiology aeb Signs/Symptoms: pt has been kept NPO, swallow eval pending Intervention/Recommendation Comments 1. Diet texture per ST. Recommend diet [id number] low sodium with Boost Glucose Control BID. Expected Outcomes/Goals Expected Outcomes/Goals 1. PO intake to meet at least 75% fo estimated nutritional needs.
== END 2017-03-19 21:15 | DRG 871 ==
LOC: MSI 08:31 → TELE 15:14 → ICU 18:15 → MSI 03-16 19:00 → TELE 03-16 19:00
PROVIDERS: ADMIT Family Medicine; ATTEND Family Medicine
DX: A41.9 Sepsis, unspecified organism (principal); G93.41 Metabolic encephalopathy; N17.9 Acute kidney failure, unspecified; F03.91 Unspecified dementia, unspecified severity, with behavioral disturbance; E87.0 Hyperosmolality and hypernatremia; N39.0 Urinary tract infection, site not specified; E11.9 Type 2 diabetes mellitus without complications; E86.0 Dehydration; I10 Essential (primary) hypertension; F29 Unspecified psychosis not due to a substance or known physiological condition; R13.10 Dysphagia, unspecified; K59.00 Constipation, unspecified; E87.6 Hypokalemia
CPT/HCPCS: 36415-UA; 71010-TC; 76700-TC; 76857-TC; 80048-TC; 80053-TC; 81001-TC; 82948-90; 83540-90; 83550-90; 83605; 84100-TC; 85007-TC; 85025-TC; 85027-TC; 87086-90; J0696; J1200; J1630; J1815; J2543; J3480; J7030; J7070; X3401; X4304; Z7610